=== PATIENT | female | born 1955 | race Caucasian/White ===

== ENCOUNTER 2024-12-30 10:40 | Outpatient (AMB) | payer MEDICARE, SELFPAY ==
--- NOTE | 2024-12-30 10:50 | MHC.OFFVIS ---
Vital Signs 12/30/24 10:54 Height 5 ft 11.38 in Weight 205 lb 0.478 oz BMI 28.3 BP 98/72 Blood Pressure Location Lt brachial Position Sitting Pulse 81 Pulse Source Pulse Oximeter Pulse Oximetry (%) 97 Oxygen Delivery Method Room Air Intake Visit Reasons: muscle pain Intake Note: Patient presents today for muscle pain. Joint pain that comes and goes as well pt believes it may be poss. fibromyalgia. Accompanied by: Self / Same As Patient Allergies environmental allergies Allergy (Verified 12/30/24 11:02) Sneezing HPI HPI muscle pain: Details: New patient evaluation. She developed joint pain and myalgias after the flu age 30s. Prior to the flu she did not have any joint pain. She lived in active life and played basketball for leisure. She then developed cyclical joint pain and myalgias mainly affecting her hands and thighs. An episode may last a few weeks. In the beginning of her clinical course she saw a rheumatology and was diagnosied with undifferentiated connective tissue disease. She reports that lab testing was negative. He told her to take an NSAID, which she took for a while but then discontinued due to fear of side effects with long-term NSAID use. Her knees would be swollen in the beginning. She had pain in her hands. She had some stiffness in her 30s. At this time she does not have stiffness. Sometimes she has discomfort in her hands and her knees. Left knee does not bend as it used to. Hx celiac disease. SHe has a cookie with gluten, which exacerbated bilateral knee pain with swelling lasting 3 weeks 3 months ago. She took advil 200mg-400mg PRN joint pain. Left knee will be painful intermittently. No joints are swollen at this time. Denies dyspnea. Denies dysphagia. Denies rash. She was on rosuvastatin for 2 months a year and half ago. Overall mylagias (mild) occurred on statin. She felt better off of statin. In the last 5 years she has had difficulty getting up from seated position or off the floor to standing. Feels like an old person . She continues to do PT exercises at home. She does not have difficulty getting up out of bed. Main weakness is in her lower extremity. She does not have weakness in her upper extremity. Last episode was a month and a half ago. She experienced muscle pain in her thighs waking her up at night. Lasting a few weeks. In the last 3 years her myalgias are isolated to thighs. 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 She has been experiencing symptoms for 11-12 years with facial and neck tics and active hand movements. Her right shoulder would move from time to time mainly in the evening when she is tired. Genetic testing was negative. They do not have a name for her movement disorder. Her father and grandmother experienced the same symptoms. Her father 21 years ago. Pmx: chorea type movement disorder dx 06/2024 but she had movements 10-12 years before. Celiac disease and bipolar disease. Breast biospy due to cystic breasts and tonsils removed in childhood. 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 Medication list reviewed. She takes vitamin D supplement and PRN multivitamin No recreational drug use or alcohol use. Grandmother had arthritis. [facility] Medical History (Updated 12/30/24 @ 22:39 by Harpreet Govea MD) Sleep apnea Celiac disease Bipolar 1 disorder Movement disorder Surgical History (Updated 12/30/24 @ 11:01 by Jovita Mata CMA) H/O breast biopsy History of tonsillectomy Review of Systems Const All systems reviewed & are unremarkable except as noted in HPI and below Physical Exam Vital Signs: Last Vital Signs Pulse 81 12/30/24 10:54 BP 98/72 12/30/24 10:54 Pulse Ox 97 12/30/24 10:54 Oxygen Delivery Method Room Air 12/30/24 10:54 BMI result Body Mass Index 28.3 Const Other: General: Comfortable CVS: RRR Respiratory: clear to auscultation bilaterally. Good respiratory effort Skin: No lesions seen MSK: Tender to palpate right 3rd PIP with mild synovitis present. Tender left 4th PIP. Heberden nodes and Damon's nodes present. She is able to make a fist with her hands. Normal range of motion of upper extremities. Bilateral hip rotation is 45 degrees. Knee flexion is normal. 5/5 power upper extremity. 4/5 power hip flexors bilateral. Rest of lower extremity is 5/5 power. Assessment & Plan Assessment & Plan (1) Leg weakness: Comment: Chronic history of myalgias involving her thighs and arthralgias mainly affecting her hands. She has clinical osteoarthritis of hands that may explain her intermittent hand pain. On exam she has lower extremity proximal muscle weakness. Differential diagnosis includes osteoarthritis of hips contributing to lower extremity weakness versus primary myopathy such as idiopathic inflammatory myositis, and metabolic myopathy. She was recently diagnosed with Chorea type movement disorder, which describes the characteristic of her movement but she does not have an established movement disease diagnosis based on her testing with neurology. Unfortunately, she does not have an established treatment or prognosis for her condition. There may be a possibility that her cyclic myalgias and arthralgias may be related to her movement disorder. It is interesting to note that she had worsening myalgias when she was on rosuvastatin last year for 2 months but she has discontinued it a year and a half ago with improvement (statin induced myalgias vs necrotizing autoimmune myositis). Code(s): R29.898 - Other symptoms and signs involving the musculoskeletal system Category: Medical Qualifiers: Laterality: bilateral Qualified Code(s): R29.898 - Other symptoms and signs involving the musculoskeletal system Plan: X-ray bilateral hips Labs ordered including muscle enzymes, electrolytes, TSH, hemoglobin A1c, vitamin B12 and inflammatory markers. EMG bilateral lower extremities ordered After x-ray results and lab results are reviewed, I will consider PT to improve lower extremity strength. She would like to go to PT closer to her home. Return to clinic in 1-2 months (2) Myalgia: Code(s): M79.10 - Myalgia, unspecified site Category: Medical Plan: See above (3) Bilateral hand pain: Comment: Intermittent. She has clinical osteoarthritis. Discussed diagnosis and management. Code(s): M79.641 - Pain in right hand; M79.642 - Pain in left hand Category: Medical Plan: X-ray bilateral hands ordered She can try topical diclofenac gel 1% applied to affected area every 4-6 hours as needed Orders: Orders Alanine Aminotransferase Today M79.10 - Myalgia, unspecified site Erythrocyte Sedimentation Rate Today M79.10 - Myalgia, unspecified site Aspartate Amino Transferase Today M79.10 - Myalgia, unspecified site C Reactive Protein Today M79.10 - Myalgia, unspecified site Creatinine Today M79.10 - Myalgia, unspecified site Creatine Kinase Total Today M79.10 - Myalgia, unspecified site UA w Microscopic Today M79.10 - Myalgia, unspecified site XR hand LT min 3V Today M79.641 - Pain in right hand, M79.642 - Pain in left hand XR hand RT min 3V Today M79.641 - Pain in right hand, M79.642 - Pain in left hand Hemoglobin A1c Today M79.10 - Myalgia, unspecified site Albumin Level Today M79.10 - Myalgia, unspecified site Calcium Today M79.10 - Myalgia, unspecified site Potassium Today M79.10 - Myalgia, unspecified site Sodium Today M79.10 - Myalgia, unspecified site Vitamin B12 Today M79.10 - Myalgia, unspecified site Aldolase Today M79.10 - Myalgia, unspecified site Complete Blood Count Auto Diff Today M79.10 - Myalgia, unspecified site XR hips NADJA min 3V Today R29.898 - Other symptoms and signs involving the musculoskeletal system NE electromyogram (EMG) Today M79.10 - Myalgia, unspecified site, R29.898 - Other symptoms and signs involving the musculoskeletal system NE nerve conduction velocity Today M79.10 - Myalgia, unspecified site, R29.898 - Other symptoms and signs involving the musculoskeletal system TSH reflex Free T4 Today M79.10 - Myalgia, unspecified site Magnesium Today M79.10 - Myalgia, unspecified site Coding Level of Care Code New Pt Level 4 (08545) Diagnoses Weakness of both lower extremities R29.898 Laterality: bilateral Myalgia M79.10 Bilateral hand pain M79.641; M79.642
[2024-12-30 10:54] VITALS: BP 98/72; PULSE 81; O2SAT 97; BMI 28.3
--- OUTSIDE RECORDS SUMMARY | 2024-12-30 12:27 | XMS_ITS | Referral Summary ---
Author Organization [facility] Address [address] [place] [address] Care Team Providers Care Chronometer Tester Name Role Phone Mello Hamlin MD Primary Care Provider [phone] Encounters Date Type Department Care Team Description 10/26/2024 Results Follow-Up [facility] [address] [place] [phone] Substation Electrician Supervisor: Elyssa James MD 10/26/2024 myChart Message [facility] [address] [place] [address] [phone] Substation Electrician Supervisor: Jadyn Lutz, MS NKX2-1 genetics negative 10/26/2024 Orders Only [facility] [address] [place] [phone] Substation Electrician Supervisor: Jadyn Lutz, 10/11/2024 1:00 PM EST Evaluation [facility] [address] [place] [phone] Substation Electrician Supervisor: Saúl Yoder MD Del Vecchio, Maria, MS Hi from Last 3 Months Allergies Active Allergy Reactions Criticality Noted Date Comments Diflunisal Swelling High 11/13/2018 Oral swelling Medications citalopram (CeleXA) 20 mg tablet Take 20 mg by mouth once a day. Active divalproex DR (Depakote) 250 mg EC tablet Take 250 mg by mouth every night. 04/02/2022 Active Social History Tobacco Use Types Packs/Day Years Used Date Smoking Tobacco: Never Smokeless Tobacco: Never Tobacco Cessation:Counseling Given: Not Answered Alcohol Use Standard Drinks/Week Comments Never 0 (1 standard drink = 0.6 oz pur e alcohol) Comments Unknown Sex and Gender Information Value Date Recorded Sex Assigned at Female 12/11/2023 3:45 PM EDT Legal Sex Female 11:55 AM EDT Gender Identity Female 06/03/2024 9:49 AM EDT Sexual Orientation Choose not to disclose 2023 9:49 AM EDT Plan of Treatment Upcoming Encounters Date Type Department Care Team (Late st Contact Info) Description 06/23/2025 9:00 AM EDT Office Visit [facility] [address] [place] [phone] Saúl Navarro MD [address] [place] [address] Procedures * Due to [place] [employer] law, this organization might not be sharing negative HIV tests. Procedure Name Priority Date/Time Associated Diagnosis Comments GENETIC TEST, OUTSIDE LAB Routine 10/26/2024 10:49 AM EST from Last 3 Months Results * Due to [facility] law, this organization might not be sharing negative HIV tests. * Genetic Test, Outside Lab (10/26/2024 10:49 AM EST) Jadyn Kiser MS LAB BLOOD ORDERABLES Final Result from Last 3 Months Insurance [facility] SUPP MEDICARE Care Teams Chronometer Tester Relationship Specialty Start Date End Date Mello Hamlin MD PCP - General 12/11/23
--- OUTSIDE RECORDS SUMMARY | 2024-12-30 12:27 | XMS_ITS | Clinical Summary ---
Author Organization [facility] Address [address] [place] [address] Care Team Providers Care Nurse Tech Name Role Phone Mello Hamlin MD Primary Care Provider [phone] Allergies Active Allergy Reactions Criticality Noted Date Comments Diflunisal Swelling High 11/13/2018 Oral swelling Medications citalopram (CeleXA) 20 mg tablet Take 20 mg by mouth once a day. Active divalproex DR (Depakote) 250 mg EC tablet Take 250 mg by mouth every night. 04/02/2022 Active Encounters Date Type Department Care Team Description 10/26/2024 Results Follow-Up [facility] [address] [place] [address] Third Steel Pourer: Elyssa James MD 10/26/2024 myChart Message [facility] [address] [place] [address]199 Third Steel Pourer: Jadyn Lutz, MS NKX2-1 genetics negative 10/26/2024 Orders Only [facility] [address] [place] [address]004 Third Steel Pourer: Jadyn Lutz MS 10/11/2024 1:00 PM EST Evaluation [facility] [address] [place] [address]32 Third Steel Pourer: Saúl Yoder MD Del Vecchio, Maria, MS Chorea from Last 3 Months Family History Medical History Relation Name Comments Chorea Father negative HD roderick ting Dementia Maternal Grandmother later o nset Dementia Mother later onset Chorea Paternal Grandmother Bipolar disorder Sister 1 Relation Name Status Comments Brother Alive Father Maternal Grandfather Maternal Grandmother Mother Paternal Grandfather Paternal Grandmother Sister 1 Alive Sister 2 Alive Social History Tobacco Use Types Packs/Day Years [...] Description 06/23/2025 9:00 AM EDT Office Visit [facility] [address] [place] [phone] Saúl Navarro MD [address] [place] [phone] Health Maintenance Due Date Last Done Comments Cologuard 1955 Colon Cancer Screening 1955 Colonoscopy 1955 FOBT / Fit Test 1955 Sigmoidoscopy 1955 Medicare AWV 1956 Pneumococcal Vaccine: 50+ Years (1 of 1 - PCV) 2005 Alcohol/Substance Use Screening 09/08/2024 Depression Screening and Follow-Up 09/08/2024 Health Care Proxy Review 09/08/2024 Social Drivers of Health Annual Screening 09/08/2024 COVID-19 Vaccine ( season) 2024 05/22/2024, 06/05/2023, 05/28/2022, Additional history exists Mammogram 03/05/2026 03/05/2024, 02/07, 10/17/2022, Additional history exists RSV Vaccine (60+ years old and patients) (1 - 1-dose 75+ series) 2030 DTaP,Tdap,and Td Vaccines (2 - Td or Tdap) 01/03/2033 01/03/2023 Hepatitis C Screening Completed 09/05/2017 Osteoporosis Screening Completed 07/09/2023 Zoster Vaccines Completed 07/11/2023, 03/14/2023 Influenza Vaccine Completed 05/22/2024, , 06/22/2022, Additional history exists Hepatitis B Vaccines Aged Out No long er eligible based on patient's age to complete this topic Procedures * Due to [place] [employer] law, this organization might not be sharing negative HIV tests. Procedure Name Priority Date/Time Associated Diagnosis Comments GENETIC TEST, OUTSIDE LAB Routine 10/26/2024 10:49 AM EST from Last 3 Months Results * Due to [place] [employer] law, this organization might not be sharing negative HIV tests. * Genetic Test, Outside Lab (10/26/2024 10:49 AM EST) Jadyn Kiser MS LAB BLOOD ORDERABLES Final Result from Last 3 Months Insurance [facility] MEDICARE Care Teams Nurse Tech Relationship Specialty Start Date End Date Mello Hamlin MD PCP - General 12/11/23
--- OUTSIDE RECORDS SUMMARY | 2024-12-30 12:27 | XMS_ITS | Encounter Summary ---
Author Organization [facility] Address [address] [place] [address] Care Team Providers Care Food Service Representative Name Role Phone Mello Hamlin MD Primary Care Provider [phone] Encounter Details Date Type Department Care Team (Late st Contact Info) Description 10/26/2024 Results Follow-Up [facility] [address] [place] [phone] Emergency Medcl Emt: Elyssa James MD [address] [place] [phone] Social History Tobacco Use Types Packs/Day Years Used Date Smoking Tobacco: Never Smokeless Tobacco: Never Alcohol Use Standard Drinks/Week Comments Never 0 (1 standard drink = 0.6 oz pur e alcohol) Comments Unknown Sex and Gender Information Value Date Recorded Sex Assigned at Female 12/11/2023 3:45 PM EDT Legal Sex Female 11:55 AM EDT Gender Identity Female 06/03/2024 9:49 AM EDT Sexual Orientation Choose not to disclose 2023 9:49 AM EDT documented as of this encounter Plan of Treatment Upcoming Encounters Date Type Department Care Team (Late st Contact Info) Description 06/23/2025 9:00 AM EDT Office Visit [facility] [address] [place] [phone] Saúl Navarro MD [address] [place] [phone] documented as of this encounter Visit Diagnoses Not on filedocumented in this encounter Care Teams Food Service Representative Relationship Specialty Start Date End Date Mello Hamlin MD PCP - General 12/11/23 documented as of this encounter
== END 2024-12-30 11:58 | disposition home or self-care (01) ==
LOC: HO.RHES 10:41
PROVIDERS: Visit Provider Internal Medicine Rheumatology
DX: R29.898 Other symptoms and signs involving the musculoskeletal system (principal); M79.10 Myalgia, unspecified site; M79.641 Pain in right hand; M79.642 Pain in left hand
CPT/HCPCS: 99204

== ENCOUNTER 2024-12-30 10:40 | Outpatient (REF) | payer MEDICARE, SELFPAY ==
--- OUTSIDE RECORDS SUMMARY | 2024-12-30 14:26 | XMS_ITS | Referral Summary ---
Author Organization [facility] Address [address] [place] [address] Care Team Providers Care Seniour Insight Manager Name Role Phone Mello Hamlin MD Primary Care Provider [phone] Encounters Date Type Department Care Team Description 10/26/2024 Results Follow-Up [facility] [address] [place] [phone] Working Supervisor: Elyssa James MD 10/26/2024 myChart Message [facility] [address] [place] [address] Working Supervisor: Jadyn Lutz, MS NKX2-1 genetics negative 10/26/2024 Orders Only [facility] [address] [place] [address] [phone] Working Supervisor: Jadyn Lutz, 10/11/2024 1:00 PM EST Evaluation [facility] [address] [place] [phone] Working Supervisor: Saúl Yoder MD Del Vecchio, Maria, [...] Description 06/23/2025 9:00 AM EDT Office Visit [facility] [address] [place] [phone] Saúl Navarro MD [address] [place] [phone] Procedures * Due to [place] [employer] law, this organization might not be sharing negative HIV tests. Procedure Name Priority Date/Time Associated Diagnosis Comments GENETIC TEST, OUTSIDE LAB Routine 10/26/2024 10:49 AM EST from Last 3 Months Results * Due to [facility] law, this organization might not be sharing negative HIV tests. * Genetic Test, Outside Lab (10/26/2024 10:49 AM EST) Jadyn Kiser MS LAB BLOOD ORDERABLES Final Result from Last 3 Months Insurance [facility] SUPP MEDICARE Care Teams Seniour Insight Manager Relationship Specialty Start Date End Date Mello Hamlin MD PCP - General 12/11/23
--- OUTSIDE RECORDS SUMMARY | 2024-12-30 14:26 | XMS_ITS | Data Portability ---
Author Organization [facility] Sidecar.me s [facility], [facility] Address [address] [address] Care Team Providers Care Database Design Analyst Name Role Phone HERB NAVARRO OTHER SHADE SHELLEY OTHER Assessment Encounter Date Assessment Date Assessment LastModified by Organization Details LastModified Time 08/16/2024 08/16/2024 Assessment and plan: Blood work done at [facility] Mind: Cognition: Normal aging changes Labs: will work to get labs from [facility] Head imaging: none in our chart Assessment: Had testing with Dr Aviles - found to be average . Plan: Will request records from Dr Aviles. Medications: only takes two medications and doesnt use pill organizer. I personally spent 160 minutes preparing for, caring for the patient (F2F and non-F2F), and finalizing the visit for this patient, which included discussion with patient and/or family about diagnosis, prognosis, recommendation s, risk/benefits, risk reduction and education of above. Will f/u in 3-4 weeks for CPE. Not available 08/16/2024 22:00:31 09/15/2024 09/15/2024 Assessment and plan: Blood work done at [facility] Mind: Cognition: Normal aging changes Labs: will work to get labs from [facility] Head imaging: none in our chart Assessment: Had testing with Dr Aviles - found to be average . Plan: Will request records from Dr Aviles. Medications: only takes two medications and doesnt use pill organizer. I personally spent 70 minutes preparing for, caring for the patient (F2F and non-F2F), and finalizing the visit for this patient, which included discussion with patient and/or family about diagnosis, prognosis, recommendation s, risk/benefits, risk reduction and education of above. Will f/u in 3 months Not available 09/15/2024 14:25:05 Plan of Treatment Reminders Order Date Submit Date Provider Last Modified By Organization Details Last Modified Time Details Appointments FOLLOW UP 30 2024 01:30P M Julia [facility] MD Not available Not available Not available Lab None recorded. Referral sleep medicine referral - getting evaluated for sleep apnea with in-clinic but needs a sleep specialis t 2023 024 ELISSA Christie MD, [address] [place], [address], 09/30/2024 16:03:44 rheumatol ogist referral - 69y.o with celiac, now muscle aches, has seen Dr Arellano , - also with chorea of unknown etiology 2023 024 Harpreet Govea MD, [address] [place], [address], 10/04/2024 13:50:35 Procedures None recorded. Surgeries None recorded. Imaging None recorded. Medication Orders None recorded. Patient Targets Encounter Date Encounter Id Patient Goals Patient Target Last Modified By Organization Details Last Modified Time Top three areas most motivated to change to improve overall currently level of health:1. exercise2. nutrition3. weight mgmt Not available 08/16/2024 22:04:38 Top three areas most motivated to change to improve overall currently level of health:1. exercise2. nutrition3. weight mgmt Not available 09/15/2024 14:30:16 Patient Instructions Encounter Date Encounter Id Patient Instructions Last Modified By Organization Details Last Modified Time 08/16/2024 [id number] sleep apnea: car e instructions Not available 08/16/2024 15:23:51 gluten-free diet : care instructions Not available 08/16/2024 15:23:51 Reason for Referral [facility] Author Referral for Celiac disease 69y.o with celiac, now muscle aches, has seen Dr Arellano, - also with chorea of unknown etiology 69y.o with celiac, now muscle aches, has seen Dr Arellano, - also with chorea of unknown etiology Referring Physician: [facility], Encounter Date: 08/16/2024 Sleep Medicine Referral for Sleep apnea evaluate and treat for sleep apnea getting evaluated for sleep apnea with in-clinic but needs a sleep specialist Referring Physician: [facility], Encounter Date: 08/16/2024 Results Created Date Observation Date Name Description Value Unit Range Abnormal Flag Note LastModifiedBy Organization Detail LastModifiedTime 09/15/19 25 MRI, brain , w/o contr ast No observ ation record ed. [email or web address] Not Available 2024 13:03:32 Result Notes None recorded. Problems Name Problem SNOMED Code Status Onset Date Resolution Date Notes Provider Name and Address Organization Details Recorded Time Celiac disease 604230079 Active 2023 Julia [facility]aker MD [address], [place], [address], [employer] [place] [employer] [facility] [employer] 4 14:15:50 Hyperchole sterolemia 76448762 Active 2023 Julia [facility] MD [address], [place], [address], [employer] [place] - [facility] [employer] 4 14:21:20 Bipolar disorder 00259057 Active 2023 mild and well managed Julia [facility] MD [address], [place], [address], [employer] [place] [employer] [facility] [employer] 4 14:21:32 Sleep apnea 97469085 Active 2023 Julia [facility] MD [address], [place], [address], [place] - [facility] [employer] 4 14:21:44 Joint pain 04944529 Active 2023 Julia [facility]aker MD [address], [place], [address], [place] - [facility] [employer] 4 14:21:58 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 Julia [facility]aker MD [address], [place], [address], [employer] 4 14:47:03 Irregular heart beat 799565656 Active 2023 Julia [facility] MD [address] [facility], [place], [address], [employer] 4 21:31:22 Goal achievemen t finding 714022757 Active 2023 Julia [facility] MD [address] [facility], [place], [address], [employer] 4 22:05:55 Seen by primary care physician [id number] 9 Active 2023 Julia [facility] MD [address] [facility], [place], [address], [employer] 4 22:06:14 Active or passive immunizati on Active 2023 Julia [facility] MD [address] [facility], [place], [address], [employer] 4 22:06:17 Problem Notes None recorded. Procedures Surgical History Date Name Laterality Status Provider Name and Address Organization Details Recorded Time biopsy of breast completed Julia [facility]aker MD [address] [facility],[address], [address], [employer] 08/16/2024 21:55:15 Imaging Results Imaging Date Name Status LastModified by Organiz ation Details LastModified Time 09/15/2024 MRI, brain, w/o contrast completed [email or web address] Information not available 09/15/2024 13:03:32 Procedure Notes None recorded. Medical Equipment None Reported. Allergies Allergen ID Allergen Name Allergen Category Reaction Reaction Severity Criticality Documentation Date Start Date Code Code System Note Provider Name and Address Organization Details Recorded Time 652 Dolobid medicatio n Not available Not available Not available 08/16/2024 86657 6 RxNorm possi ble aller gic react ion Julia [facility] MD [address] [facility], [place], [address], [employer] [facility] 4 21:57:37 Medications Name Sig Start Date Stop Date Status Note LastModified by Organization Details LastModified Time citalopram 20 mg tablet TAKE 1 TABLET BY MOUTH EVERYDAY AT BEDTIME active Not Available Not Available No t Available divalproex ER 250 mg tablet,exte nded release 24 hr TAKE 1 TABLET BY MOUTH EVERYDAY AT BEDTIME active Not Available Not Available No t Available rosuvastati n 10 mg tablet TAKE 1 TABLET BY MOUTH EVERY DAY FOR 90 DAYS 08/16 completed Not Available Not Available Not Available Vitamin D3 active Not Available Not Av ailable Not Available Paxlovid 300 mg (150 mg x 2)-100 mg tablets in a dose pack active Not Available Not Available Not Available Vitals Date Recorded Body height Body mass index (BMI) Body weight Heart rate Oxygen saturation Oxygen saturation in Arterial blood by Pulse oximetry Systolic blood pressure Diastolic blood pressure Provider Name and Address Organization Details Last Updated DateTime 4 181.61 cm 27.9 kg/m2 38866.2 5 g 97 /min 78 % 78 % 118 mm[Hg] 68 mm[Hg] Elizabeth Rosado [facility] 4 14:14:29 Date Recorded Body height Body mass index (BMI) Body weight Heart rate Oxygen saturation Oxygen saturation in Arterial blood by Pulse oximetry Provider Name and Address Organization Details Last Updated DateTime 5 181.61 cm 28.1 kg/m2 80647.8 4 g 105 /min 95 % 95 % Luis Barrientos [facility] 5 12:59:17 Social History None recorded. Functional Status None recorded. Mental Status None recorded. Family History Relationship Description Onset Age of this Age Resolved Age Notes LastModified by Organization Details LastModified Time Sister Bipolar disorder Not available 2023 14:28:32 Sister Malignant tumor of breast Not available 2023 14:28:51 Notes:Both parents mother 3 years ago of dementia, kidney, heart disease; father in 2003 heart disease Medical History Condition Response Abnormal Bleeding N Thyroid Disease N Parkinson's Disease N Emphysema N Incontinence N Edema N Urinary Problems N Abdominal Pain N Heart Attack (NV) N Deep Vein Thrombosis N Hearing Loss N Acid Reflux (GERD) Y Abnormal Pap Smear N Back Problems N Dementia N Nervous System Disorder N Gynecological HistoryNo gynecological history recorded. Obstetrics History GPAL:G 0 P 0 0 0 0 Past Encounters Encounter ID Performer Location Encounter Start Date Encounter Closed Date Diagnosis/Indication Diagnosis SNOMED-CT Code Diagnosis ICD10 Code Diagnosis Note [id number] MD [facility] [address] [facility] [address] 08/16/2024 13:59:05 08/16/2024 22:13:13 Seen by primary care physician [id number] 109 Z76.89 CPE: Cardiovasc ular health:BMI : 27.9Lipids : will get reocrdsDia evans: will get recordsBP control: well controlled Hearing: not needed at this time[facility]: Yes, Aga Cancer Screening: Breast: Mammogram 7.11.01, CDHCervica l: a few years ago, by Dr Feliz : a few years before covid, gets them done every 10 years, the pratice sends a notificati onLung: not needed Diet & Exercise: will discuss Osteoporos is Screening: will check on Dexa Advanced Care Planning: Has HCP Active or passive immunization [id number] Z23 MIIS ID: [id number] : Pneumo PCV - she is aware SummaryImm unizations Tdap 01/03/2023 Flu 06/05/2023 05/22/2024 COVID-19 09/30/2020 10/21/2020 06/11/2021 12/21/2021 05/28/2022 06/05/2023 05/22/2024 HiZoster 03/14/2023 , 07/11/2023 RSV - not until age 75 Advance care planning 71 [id number] Z71.89 Health Care Proxy: Juan Manuel Varghese, had it completed this summer.MOL ST: Not needed at this time.Other : POA and will completed done with Lawyer Chito in [place]. Has Goal achie vement finding [id number] Z72.89 Lifestyle Assessment Short Form:1. Overall level of health (0 - very poor - 10 excellent) 5 Sleep:2. Avg hours sleep: 7-8, totally interrupte d sleep3. How often felt tired: I nap 1-2x a day, more than half the days. Weight Management :What do you think about your current weight?: I am a weight watcher failure!! Nutrition: 5. how often have you eaten fast food/sugar y drinks or packaged foods:? nearly every day. I crave sweets badly!6. Daily servings of fruits&veg etables: depends on the day - 0-3 servings/d ay Exercise:7 . Frequency less than 1x a week. i walk slowly as my dog is with me.8. Minutes of moderate-s trenous exercise per session: < 10 minutes day. I do simple balance and stretching every morning. Purpose and connection /Mental health: (0 - best to 3- worst)9.a. purpose: 0b. support: 0c. little pleasure: 0d. feeling down, depressed, hopeless: 0e. feeling nervous/an xious: 1f. worryin Smoking/Felipe bstance Use10. Nicotine: noFrequncy : Is there concern?: (1 low concern-5 high concern)11 . Alcohol: noFrequenc y: Is there concern?: (1 low concern-5 high concern)12 . Recreation al drugs: noFrequncy : Is there concern?: (1 low concern-5 high concern)13 . Cannabis: noFrequncy : Is there concern?: (1 low concern-5 high concern) Motivation :14. Top three areas most motivated to change to improve overall currently level of health:1. exercise2. nutrition3 . weight mgmt What motivates you to be healthier: my dogs and their competitiv e sports, but lately I have not had much motivation . Sometimes its hard to exercise because everything hurts! Bipolar disorder 6953594 4 F31.9 Mild overall,Vera s never been hospitaliz ed. Had one manic episode that was worse but overall maintained .Had a few episodes when she would get upset but when she went on a mood stabilizer and it made a huge difference . She was mood stabilizer and an anti-depre ssant and felt normal on this.Had been on Prozac, risperidon e 0.5 mg. Prozac made her gain weight - she would keep eating even when she wasn't hungry.Now sees Mau Shelley, Psychwho diagnosed Bipolar. Has seen therapist in the past but doesnt feel a need. Dale that after menopause things are a little better. Doesnt miss the risperidon e.Plan:Cur rently on citalopram 20 mg and divalproex ER 250 mg - does have some loose stoolsCan discuss what she has tried for loose stools next visit.F/u with Psych every 6 months but she can call him if she needs anything. Celiac disease 951886066 K90.0 She had a blood test with Dr De, and stopped gluten.Rec ently had some gluten and devd significan t joint pain but better when she stays off gluten.She has seen Dr Arellano, Rheumatolo gy - who noted she has some auto-immun eNotes that her muscles hurt in her legs - has been going on for the past few years. More frequently in the past 6 months, can wake her up at night. She tries to stretch and that can help.Would benefit from seeing a rheumatolo gist.Will put in a referral to Dr Harpreet Govea, Rheumatsilvana gist at [place]. 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 He walked with a wide base of support. He did see a neurologis t and they found all kinds of stuff but they didnt find a name for it. Movements looked like [place] 's disease. Her father's side of the family all had someone.He referred her to Nan De, did MRI Brain, looked like it was some kind of movement disorder but not named. She wanted to see someone at the beginning. The last two years have gotten more noticable - neck twitches, right shoulder movements. Then Dr Shelley, Psych, decided to get her off risperidon e to ensure that it was not contributi ng. The movements actually got worse off the risperidon e - Dr Navarro said that was to be expected as they use risperidon e to treat it.She started seeing Diana Street, PT - and then saw Dr. 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 He gave her all these options. e had blood work done - which came back normal. MRI Brain was essential ly normal Had CAFE OPERATOR evaluation with [facility] - no problems awarePlan: They will do genetic counseling and then test her.Appt appt with Dr Navarro next year and genetic counseling is in Oct 2024.Funct ionally there is no change. It can be hard to walk up the stairs but her strength is the same.Can check in with Diana Young as needed.Con tinue with exercises, balance work and ensure strengthen ing exercises. Hypercholesterolemia 136 88315 E78.00 Very borderline . One doctor thought she needed rosuvastat in. She was on it for a while - and didnt feel good on it.will get current blood work. She had [facility] Panel. Joint pain 49245857 M25. 50 as above, seems to be due to celiac disease but will put in referral to rheumatolo gy. Sleep apnea 63933734 G47 .30 She had a study done at [facility]. her in hospital study September 19 at [facility].S he will need a referral to sleep clinic - will put in a referral to Dr Henderson [id number] MD [facility] [address] [facility] [address] [place] [address] 09/15/2024 12:51:20 09/15/2024 14:33:12 Seen by primary care physician [id number] 109 Z76.89 CPE: Specialist s:Dr Herb Navarro: [facility] [place] [facility]ermat[facility] yTrying to get into Dr Govea Cardiovasc [facility] health:BMI : 27.9Lipids : will get recordsDia betes: will get recordsBP control: well controlled Hearing: not needed at this timeDental : [facility] Yes, Dr Yung Cancer Screening: Breast: Mammogram 7.2.24, [facility] - repeat 7.25Cervic al: a few years ago, by Dr Feliz : a few years before covid, gets them done every 10 years, the practice sends a notificati onLung: not needed Diet & Exercise: will discussOst eoporosis Screening: within the past 1.5 years, was averageAdv anced Care Planning:H as HCP Active or passive immunization [id number] Z23 MIIS ID: [id number] : Pneumo PCV - she is aware SummaryImm unizations Tdap 01/03/2023 Flu 06/05/2023 05/22/2024 COVID-19 09/30/2020 10/21/2020 06/11/2021 12/21/2021 05/28/2022 06/05/2023 05/22/2024 HiZoster 03/14/2023 , 07/11/2023 RSV - not until age 75 Advance care planning 71 [id number] Z71.89 Health Care Proxy: Juan Manuel Varghese, had it completed this summer.MOL ST: Not needed at this time.Other : POA and will completed done with Lawyer Chito in [place]. Goal achie vement finding [id number] Z72.89 Lifestyle Assessment Short Form:1. Overall level of health (0 - very poor - 10 excellent) 5has aches and pain, would like to lose weight Sleep:2. Avg hours sleep: 7-8, totally interrupte d sleep3. How often felt tired: I nap 1-2x a day, more than half the days. Weight Management :What do you think about your current weight?: I am a weight watcher failure!! Nutrition: 5. how often have you eaten fast food/sugar y drinks or packaged foods:? nearly every day. I crave sweets badly!6. Daily servings of fruits&veg etables: depends on the day - 0-3 servings/d ay Exercise:7 . Frequency less than 1x a week. i walk slowly as my dog is with me.8. Minutes of moderate-s trenous exercise per session: < 10 minutes day. I do simple balance and stretching every morning. Purpose and connection /Mental health: (0 - best to 3- worst)9.a. purpose: 0b. support: 0c. little pleasure: 0d. feeling down, depressed, hopeless: 0e. feeling nervous/an xious: 1f. worryin Smoking/Felipe bstance Use10. Nicotine: noFrequncy : Is there concern?: (1 low concern-5 high concern)11 . Alcohol: noFrequenc y: Is there concern?: (1 low concern-5 high concern)12 . Recreation al drugs: noFrequncy : Is there concern?: (1 low concern-5 high concern)13 . Cannabis: noFrequncy : Is there concern?: (1 low concern-5 high concern) Motivation :14. Top three areas most motivated to change to improve overall currently level of health:1. exercise2. nutrition3 . weight mgmt What motivates you to be healthier: my dogs and their competitiv e sports, but lately I have not had much motivation . Sometimes its hard to exercise because everything hurts! Bipolar disorder 6529911 4 F31.9 Mild overall,Vera s never been hospitaliz ed. Had one manic episode that was worse but overall maintained .Had a few episodes when she would get upset but when she went on a mood stabilizer and it made a huge difference . She was mood stabilizer and an anti-depre ssant and felt normal on this.Had been on Prozac, risperidon e 0.5 mg. Prozac made her gain weight - she would keep eating even when she wasn't hungry.Now sees Mau Shelley, Psychwho diagnosed Bipolar. Has seen therapist in the past but doesnt feel a need. Dale that after menopause things are a little better. Doesnt miss the risperidon e.Plan:Cur rently on citalopram 20 mg and divalproex ER 250 mg - does have some loose stoolsF/u with Psych every 6 months but she can call him if she needs anything. Celiac disease 377534236 K90.0 She had a blood test with Dr De, and stopped gluten.Rec ently had some gluten and devd significan t joint pain but better when she stays off gluten.She has seen Dr Arellano Rheumatsilvana gy - who noted she has some auto-immun e issues.Not es that her muscles hurt in her legs - has been going on for the past few years. More frequently in the past 6 months, can wake her up at night. She tries to stretch and that can help.Would benefit from seeing a rheumatsilvana wallis.We put in a referral to Dr Harpreet Govea Rheumatsilvana gist at [place]. She agreed to see Terri but then was told no by the receptioni Vianey Do 309337633 G25.5 Her father had similiar movements. He walked with a wide base of support. He did see a neurologis t and they found all kinds of stuff but they didnt find a name for it. Movements looked like [place] 's disease. Her father's side of the family all had someone.He referred her to Nan De, did MRI Brain, looked like it was some kind of movement disorder but not named. She wanted to see someone at the beginning. The last two years have gotten more noticable - neck twitches, right shoulder movements. Then Dr Shelley, Psych, decided to get her off risperidon e to ensure that it was not contributi ng. The movements actually got worse off the risperidon e - Dr Navarro said that was to be expected as they use risperidon e to treat it.She started seeing Diana Street, PT - and then saw Dr. Navarro.Sam saeed if it was benign familial chorea though didnt start in childhood. He gave her all these options. e had blood work done - which came back normal. MRI Brain was essential ly normal Had CAFE OPERATOR evaluation with [facility] on 02.04.24 - no problems that she was aware of. Neuro evaluation :Seen by Dr Herb Navarro first 06.10.24 who noted taht she developed some involuntar y movements, particular ly in her shoulder, many years before starting risperidon e. 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 He noted that the ddx was large. He planed to check TSH, CBC, copper, VIt E, refer to genetics and ordered MRI brain without contrast with planned f/u in one year. MRI Bzrain done at [facility] 06.20.24 - noted mild prominence of the ventricles and subarachno id spaces. Otherwise, unremarkab le non contrast MRI examinatio n of the brain (Reading per radiology, Dr Herbert Crespo) Plan:They will do genetic counseling and then test her.Appt appt with Dr Navarro next year and genetic counseling is in Oct 2024.Funct ionally there is no change. It can be hard to walk up the stairs but her strength is the same.Can check in with Diana Young as needed.Con tinue with exercises, balance work and ensure strengthen ing exercises. Hypercholesterolemia 136 97127 E78.00 Very borderline . One doctor thought she needed rosuvastat in. She was on it for a while - and didnt feel good on it.will get current blood work. She had [facility] Heart Panel. Joint pain 84836334 M25. 50 as above, seems to be due to celiac disease but will put in referral to rheumatolo pravin. Sleep apnea 42560372 G47 .30 She had a study done at [facility]. Her in hospital study September 15 at [facility].S he will need a referral to sleep clinic - we put in a referral to Dr Henderson but she has not heard from them. Loose stool 309538170 R1 9.5 Chronic and intermitte nt.She thinks caused by depakote. Has tried immodium with good effect.She is able to manage it but it can be unpredicta ble.Can try metamucil wafers. 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 Health Concerns Section Related Observation LastModified by Organization Detai ls LastModified Time None Recorded Concern Status LastModified by Organization Details LastModified Time None Recorded Advance Directives Directive None Recorded Payers Encounter Date Sequence Insurance Name Policy Number Policy Dinh Covered Member ID Dinh Member ID Guarantor Name 08/16/2024 1 [place] [employer] [place] Terri Jimenez [id number] 5 Terri Jimenez 08/16/2024 2 [place] [id number] Terri Jimenez [id number] Terri Jimenez 09/15/2024 1 [place] Terri Jimenez [id number] Terri Jimenez 09/15/2024 2 [place] [id number] Terri Jimenez [id number] Terri Jimenez Notes Date Note Type Note Provider Name and Address Organization Details Recorded Time 08/16/2024 text/html [facility] New Patient Information Person to contact for appointments and communication of results and appointments Self! 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 Saw Dr Yakelin cadena. Also saw Diana Young. Had a sleep study, in home, and is waiting for an in clinic Celiac disease with joint pain. Holter monitor is pending. PHQ9: 5 overeatingGAD7: 4 feeling nervous thats my norm , irritable - only to Ramesh at home Health and Wellness Goals: What are your goals for your overall health and well-being?: If there were one thing about your health status we could work to improve, what would it be?: better level of exercise, lose weight, combat my terrible sweet tooth. Problems or concerns you? d like the doctor to know about before your visit?: Care Planning: What matters most to you at this point in your life?: health! Longevity! Trying to stay active! fighting fatigue! enjoying my dogs and their competitive sports. Have you had any recent major life events (e.g., moves, in the family, hospital visits)?: Social History: Where were you born/raised? [place] 2 sisters and 1 brother.Childhood: parents very loving. Father drank from the time she was [age] gave them hell and then got better. He had a stressful job - solid state tester.Both parents - mother 3 years ago of dementia, kidney, heart disease; father in 2003 heart diseaseWhat is your highest level of formal education?: [employer]; Master's DegreePartner status: single - got past her 40's, she feels tht she is asexual.Sexual orientation: straightDo you have children?: 0Which of the following best describes your residence?: [facility] - since 1990.Do you live alone? 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 no Do you use a pill organizer?: NoUses auto refill at [facility] How often do you forget to take your medications?: Rare Do you have any concerns about your medications?: depakote causes random loose stools. Have discussed this with Dr Shelley. It is really annoying. General Information: Daily Assistance:Function:AD L: (bathing, dressing, toileting, transferring, continence, feeding)FullIADL: ( Telephone, shopping, food preparation, housekeeping, laundry, Transportation, Medications, Finances)FullDo you have someone who helps you?: 2 hours week, housekeeperDo you provide care for a family member?: No Falls and Mobility: Any falls in the last year?: noAre you afraid of falling?: noAssistive Device: no Sleep How would you describe your sleep?: fair to poorDo you snore?: dont knowHave you been tested for sleep apnea?: in process, the home study suggests sleep apnea Nutrition How would you describe your appetite: goodHave you experienced weight changes over the last year?: weight gainWould you like assistance with meals?: no Fitness Level Do you feel tired during the day?: yesCan you walk up a flight of stairs?: yesCan you walk around the block?: yesDo you take part in regular activities to improve or support your physical fitness?: not reallyHow do you think your health compares to others your age? okay Julia [facility] MD [address] [place] [address], [place], [address], [facility] - [facility] 08/16/2024 22:10:37 09/15/2024 text/html Since last visit , 08.16.24 Has the sleep study at [facility].Oct 11 has genetic counseling at [facility], virtual Joints are back to normal - wakes up with left knee and hip pain in the morning but otherwise doing okay. Did get covid at the end of August, took Paxlovid - it worked well and things were very mild for her.?Falls/change in gait: NoneED visits/hospitalization s: NoneChanges in function: NoneChanges in medication: None Julia [facility] MD [address] [place] [address],[facility], [place], [address], [facility] 09/15/2024 14:32:47 OBGyn Episode No OBEpisode recorded.
--- OUTSIDE RECORDS SUMMARY | 2024-12-30 14:26 | XMS_ITS | Encounter Summary ---
Author Organization [facility] Address [address] [place] [address] Care Team Providers Care Tunnel Mucker Name Role Phone Mello Hamlin MD Primary Care Provider [phone] Encounter Details Date Type Department Care Team (Late st Contact Info) Description 10/26/2024 Results Follow-Up [facility] [address] [place] [address] Microfilmer: Elyssa James MD [address] [place] [address] Social History Tobacco Use Types Packs/Day Years [...] Description 06/23/2025 9:00 AM EDT Office Visit [facility] [address] [place] [address] Saúl Navarro MD [address] [place] [address] documented as of this encounter Visit Diagnoses Not on filedocumented in this encounter Care Teams Tunnel Mucker Relationship Specialty Start Date End Date Mello Hamlin MD PCP - General 12/11/23 documented as of this encounter
--- OUTSIDE RECORDS SUMMARY | 2024-12-30 14:26 | XMS_ITS | Clinical Summary ---
Author Organization [facility] Address [address] [place] [address] Care Team Providers Care Creative Perfumer Name Role Phone Mello Hamlin MD Primary Care Provider [phone] Allergies Active Allergy Reactions Criticality Noted Date Comments Diflunisal Swelling High 11/13/2018 Oral swelling Medications citalopram (CeleXA) 20 mg tablet Take 20 mg by mouth once a day. Active divalproex DR (Depakote) 250 mg EC tablet Take 250 mg by mouth every night. 04/02/2022 Active Encounters Date Type Department Care Team Description 10/26/2024 Results Follow-Up [facility] [address] [place] [address] Reporting Consultant: Elyssa James MD 10/26/2024 myChart Message [facility] [address] [place] [address] Reporting Consultant: Jadyn Lutz, MS NKX2-1 genetics negative 10/26/2024 Orders Only [facility] [address] [place] [address] Reporting Consultant: Jadyn Lutz MS 10/11/2024 1:00 PM EST Evaluation [facility] [address] [place] [address] Reporting Consultant: Saúl Yoder MD Del Vecchio, Maria, MS [...] Description 06/23/2025 9:00 AM EDT Office Visit [facility] [address] [place] [address] Saúl Navarro MD [address] [place] [address] Health Maintenance Due Date Last Done Comments [...] complete this topic Procedures * Due to [place] [employer] law, this organization might not be sharing negative HIV tests. Procedure Name Priority Date/Time Associated Diagnosis Comments GENETIC TEST, OUTSIDE LAB Routine 10/26/2024 10:49 AM EST from Last 3 Months Results * Due to [place] [employer] law, this organization might not be sharing negative HIV tests. * Genetic Test, Outside Lab (10/26/2024 10:49 AM EST) Jadyn Kiser MS LAB BLOOD ORDERABLES Final Result from Last 3 Months Insurance [facility] MEDICARE Care Teams Creative Perfumer Relationship Specialty Start Date End Date Mello Hamlin MD PCP - General 12/11/23
[2024-12-30 17:39] LABS: MANUAL DIFF FLAG NO
[2024-12-30 17:50] LABS: Basophils Absolute Auto 0.1 X10*3/uL (0.0-0.2); Basophils Percent Auto 0.9 % (0-2); Eosinophils Absolute Auto 0.2 X10*3/uL (0.0-0.4); Hematocrit 44.4 % (37.0-47.0); Hemoglobin 14.2 g/dl (12.0-16.0); Imm Gran Abs Auto 0.02 X10*3/uL (0.00-0.03); Imm Gran Pct Auto 0.3 % (0.0-0.4); Lymphocytes Absolute Auto 1.6 X10*3/uL (1.2-4.9); Lymphocytes Percent Auto 22.3 % (20-40); Mean Corpuscular Hemoglobin 28.1 pg (27.0-33.0); Mean Corpuscular Volume 87.7 fL (80.0-98.0); Mean Platelet Volume 11.1 fL (9.4-12.3); Monocytes Absolute Auto 0.5 X10*3/uL (0.1-1.2); Monocytes Percent Auto 7.5 % (2-11); Neutrophils Absolute Auto 4.6 x10*3/uL (2.0-8.3); Platelet Count 321 X10*3/uL (160-400); Red Blood Count 5.06 X10*6/uL (4.20-5.50); Red Cell Distribution Width 14.1 % (11.0-16.0); White Blood Count 6.9 X10*3/uL (4.8-10.8)
[2024-12-30 17:58] LABS: Appearance Urine Clear; Color Urine Yellow; Glucose Urine UA Negative (Negative); Leukocyte Esterase Urine Negative (Negative); Nitrite Urine Negative (Negative); PH 6.5 (5.0-9.0); Urine Blood Negative (Negative); Urine Ketones Trace mg/dL (Negative); Urine Protein Negative (Neg-Trace)
[2024-12-30 18:05] LABS: Alanine Aminotransferase 20 U/L (0-31); Aspartate Amino Transferase 24 U/L (5-31); C Reactive Protein 0.31 mg/dL (< or = 0.50); Estimated Glomerular Filt Rate > 60
[2024-12-30 18:07] LABS: Bacteria Urine None Seen (None Seen); Hyaline Casts Urine 0-2 /LPF (0-2); RBC Urine 0-2 /HPF (0-2); Squamous Epithelial Cell Urine 0-2 /HPF (0-2); WBC Urine 0-5 /HPF (0-5)
[2024-12-30 18:26] LABS: Erythrocyte Sedimentation Rate 4 MM/HR (0-20)
[2024-12-30 23:00] LABS: Albumin Level 4.4 g/dL (3.5-5.0); Calcium 9.6 mg/dL (8.4-10.2); Magnesium 2.5 mg/dL (1.6-2.6); Potassium 4.3 mmol/L (3.3-5.1); Sodium 140 mmol/L (135-145)
[2024-12-30 23:15] LABS: TSH reflex Free T4 0.74 uIU/mL (0.32-4.0)
[2024-12-31 05:26] LABS: Estimated Average Glucose 105 mg/dL; Hemoglobin A1C 128.4083 umol/L; Hemoglobin A1c % 5.3 % (<6.0); Total Hemoglobin (HGBA1C) 3735.9681 umol/L
[2025-01-04 21:33] LABS: Aldolase 4.3 U/L (<=8.1)
== END 2024-12-30 10:41 | disposition home or self-care (01) ==
LOC: HO.HKASLDS 10:40
PROVIDERS: Visit Provider Internal Medicine Rheumatology
DX: M79.10 Myalgia, unspecified site (principal); Z13.1 Encounter for screening for diabetes mellitus
CPT/HCPCS: 36415; 81001; 82040; 82085; 82310; 82550; 82565; 83036; 83735; 84132; 84295; 84443; 84450; 84460; 85025; 85652; 86140; 99202

== ENCOUNTER 2024-12-30 22:33 | Outpatient (REF) | payer MEDICARE, SELFPAY ==
--- OUTSIDE RECORDS SUMMARY | 2024-12-30 22:35 | XMS_ITS | Referral Summary ---
Author Organization [facility] Address [address] [place] [address] Care Team Providers Care Gericare Aide Teacher Name Role Phone Mello Hamlin MD Primary Care Provider [phone] Encounters Date Type Department Care Team Description 10/26/2024 Results Follow-Up [facility] [address] [place] [address] Fixed Income Analyst: Elyssa James MD 10/26/2024 myChart Message [facility] [address] [place] [phone] Fixed Income Analyst: Jadyn Lutz, MS NKX2-1 genetics negative 10/26/2024 Orders Only [facility] [address] [place] [address] Fixed Income Analyst: Jadyn Lutz, 10/11/2024 1:00 PM EST Evaluation [facility] [address] [place] [address] Fixed Income Analyst: Saúl Yoder MD Del Vecchio, Maria, MS [...] Description 06/23/2025 9:00 AM EDT Office Visit [facility] [address] [place] [address] Saúl Navarro MD [address] [place] [address] Procedures * Due to [place] [employer] law, this organization might not be sharing negative HIV tests. Procedure Name Priority Date/Time Associated Diagnosis Comments GENETIC TEST, OUTSIDE LAB Routine 10/26/2024 10:49 AM EST from Last 3 Months Results * Due to [facility] law, this organization might not be sharing negative HIV tests. * Genetic Test, Outside Lab (10/26/2024 10:49 AM EST) Jadyn Kiser MS LAB BLOOD ORDERABLES Final Result from Last 3 Months Insurance [facility] SUPP MEDICARE Care Teams Gericare Aide Teacher Relationship Specialty Start Date End Date Mello Hamlin MD PCP - General 12/11/23
--- OUTSIDE RECORDS SUMMARY | 2024-12-30 22:35 | XMS_ITS | Encounter Summary ---
Author Organization [facility] Address [address] [place] [address] Care Team Providers Care Saw Tailer Name Role Phone Mello Hamlin MD Primary Care Provider [phone] Encounter Details Date Type Department Care Team (Late st Contact Info) Description 10/26/2024 Results Follow-Up [facility] [address] [place] [address] Boiler Plant Worker: Elyssa James MD [address] [place] [address] Social History Tobacco Use Types Packs/Day Years [...] Description 06/23/2025 9:00 AM EDT Office Visit [facility] [address] [place] [address] Saúl Navarro MD [address] [place] [address] documented as of this encounter Visit Diagnoses Not on filedocumented in this encounter Care Teams Saw Tailer Relationship Specialty Start Date End Date Mello Hamlin MD PCP - General 12/11/23 documented as of this encounter
== END 2024-12-30 22:34 | disposition home or self-care (01) ==
LOC: HO.LAB 22:33
PROVIDERS: Visit Provider Internal Medicine Rheumatology
DX: Z13.89 Encounter for screening for other disorder (principal)

== ENCOUNTER 2025-01-03 15:01 | Outpatient (REF) | payer MEDICARE, SELFPAY ==
--- NOTE | ~2025-01-03 | XR_ITS ---
EXAMINATION: XR BILATERAL HIPS WITH AP PELVIS CLINICAL INFORMATION: R29.898 - Other symptoms and signs involving the musculoskeletal system COMPARISON: None available. TECHNIQUE: AP view of the pelvis and single views of each hip were obtained. FINDINGS: Right hip: No acute cortical disruption or malalignment. No lytic or blastic lesions. Mild asymmetric joint space narrowing. Mild sclerosis at the articular surface of the right acetabulum. Left hip: Sclerosis along the articular surface of the acetabulum and femoral head. Asymmetric joint space narrowing. No acute cortical disruption or gross malalignment. No lytic or blastic lesions. XR/XR hips NADJA min 3V IMPRESSION: Moderate osteoarthrosis, left hip. Mild osteoarthrosis, right hip. Electronically signed by: Mumtaz Willard MD 01/04/2025 07:46 AM EDT
--- NOTE | ~2025-01-03 | XR_ITS ---
EXAMINATION: X-ray hand, bilaterally. CLINICAL INFORMATION: Pain in the right hand TECHNIQUE: PA, oblique and lateral views. COMPARISON: None FINDINGS: Right hand: Sclerosis along the articular surface of the first and second carpal metacarpal joints and the radiocarpal joint. Asymmetric joint space narrowing involving the distal and to a lesser extent middle interphalangeal joints of the digits. No acute cortical disruption or malalignment. No lytic or blastic lesions. Left hand: Sclerosis along the articular surface of the first and second carpometacarpal joints. Sclerosis along the articular surface with decreased joint spacing involving the distal and to a lesser extent middle interphalangeal joints of the digits. No acute cortical disruption or malalignment. No lytic or blastic lesions. XR/XR Hand Bilat min 3v IMPRESSION: Osteoarthrosis, mild to moderate both hands. Electronically signed by: Mumtaz Willard MD 01/04/2025 07:52 AM EDT
--- OUTSIDE RECORDS SUMMARY | 2025-01-03 17:56 | XMS_ITS | Clinical Summary ---
Author Organization [facility] Address [address] [place] [address] Care Team Providers Care Compounding Technician Name Role Phone Mello Hamlin MD Primary Care Provider [phone] Allergies Active Allergy Reactions Criticality Noted Date Comments Diflunisal Swelling High 11/13/2018 Oral swelling Medications citalopram (CeleXA) 20 mg tablet Take 20 mg by mouth once a day. Active divalproex DR (Depakote) 250 mg EC tablet Take 250 mg by mouth every night. 04/02/2022 Active Encounters Date Type Department Care Team Description 10/26/2024 Results Follow-Up [facility] [address] [place] [address] Sales Record Clerk: Elyssa James MD 10/26/2024 myChart Message [facility] [address] [place] [address] Sales Record Clerk: Jadyn Lutz, MS NKX2-1 genetics negative 10/26/2024 Orders Only [facility] [address] [place] [address] Sales Record Clerk: Jadyn Lutz MS 10/11/2024 1:00 PM EST Evaluation [facility] [address] [place] [address] Sales Record Clerk: Saúl Yoder MD Del Vecchio, Maria, MS [...] Description 06/23/2025 9:00 AM EDT Office Visit [facility] [address] [place] [address] Saúl Navarro MD [address] [place] [address] Health Maintenance Due Date Last Done Comments [...] complete this topic Procedures * Due to [place] [employer] law, this organization might not be sharing negative HIV tests. Procedure Name Priority Date/Time Associated Diagnosis Comments GENETIC TEST, OUTSIDE LAB Routine 10/26/2024 10:49 AM EST from Last 3 Months Results * Due to [place] [employer] law, this organization might not be sharing negative HIV tests. * Genetic Test, Outside Lab (10/26/2024 10:49 AM EST) Jadyn Kiser MS LAB BLOOD ORDERABLES Final Result from Last 3 Months Insurance [facility] MEDICARE Care Teams Compounding Technician Relationship Specialty Start Date End Date Mello Hamlin MD PCP - General 12/11/23
--- OUTSIDE RECORDS SUMMARY | 2025-01-03 17:56 | XMS_ITS | Data Portability ---
Author Organization [facility] [employer] [facility], [facility] Address [address] [address] Care Team Providers Care Wet Finisher Name Role Phone HERB NAVARRO OTHER SHADE SHELLEY OTHER Assessment Encounter Date Assessment Date Assessment LastModified by Organization Details LastModified Time 08/16/2024 08/16/2024 Assessment and plan: Blood work done at [facility] Mind: Cognition: Normal aging changes Labs: will work to get labs from [facility] Head imaging: none in our chart Assessment: [...] Assessment and plan: Blood work done at [facility] Mind: Cognition: Normal aging changes Labs: will work to get labs from [facility] Head imaging: none in our chart Assessment: [...] 2023 024 ELISSA Christie MD, [address] [place], [address], 09/30/2024 16:03:44 rheumatol ogist referral - 69y.o with celiac, now muscle aches, has seen Dr Arellano , - also with chorea of unknown etiology 2023 024 Harpreet Govea MD, [address] [place], [address], 10/04/2024 13:50:35 Procedures None recorded. Surgeries None [...] Not available 08/16/2024 15:23:51 Reason for Referral Client Service And Consulting Manager Referral for Celiac disease 69y.o with celiac, [...] Address Organization Details Recorded Time Celiac disease 037273294 Active 2023 Julia Whitaker MD [address], [place], [address], [place] [employer] [facility] Provas[facility] 4 14:15:50 Hyperchole sterolemia 55030150 Active 2023 Julia Whitaker MD [address], [place], [address], [place] [employer] [facility] Pro[facility] 4 14:21:20 Bipolar disorder 17861226 Active 2023 mild and well managed Julia [facility]aker MD [address], [place], [address], [place] [employer] [facility] Pro[facility] 4 14:21:32 Sleep apnea 31636293 Active 2023 Julia Whitaker MD [address], [place], [address], [place] [employer] [facility] Provascul[facility] 4 14:21:44 Pain of joint 33452716 Active 2023 Julia Whitaker MD [address], [place], [address], [place] [employer] [facility] Provas[facility] 4 14:21:58 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 Julia Whitaker MD [address], [place], [address], Status Overloads Provasculon 4 14:47:03 Irregular heart beat 951672102 Active 2023 Julia Whitaker MD [address] [facility], [place], [address], Status Overloads Provasculon 4 21:31:22 Goal achievemen t finding 215650400 Active 2023 Julia Whitaker MD [address] [facility], [place], [address], Status Overloads Provasculon 4 22:05:55 Seen by primary care physician [id number] 9 Active 2023 Julia [facility] MD [address] [facility], [place], [address], [employer] 4 22:06:14 Active or passive immunizati on Active 2023 Julia [facility]aker MD [address] [facility], [place], [address], [employer] [place] 4 22:06:17 Problem Notes None recorded. Procedures Surgical History Date Name Laterality Status Provider Name and Address Organization Details Recorded Time biopsy of breast completed Julia Whitaker MD [address] [facility],[address], [address], [employer] 08/16/2024 21:55:15 Imaging Results Imaging Date Name [...] Not available Not available Not available 08/16/2024 [id number] RxNorm possi ble aller gic react ion Julia Whitaker MD [address] [facility], [place], [address], [employer] 4 21:57:37 Medications Name Sig Start Date [...] Updated DateTime 4 181.61 cm 27.9 kg/m2 32600.2 5 g 97 /min 78 % 78 % 118 mm[Hg] 68 mm[Hg] Elizabeth Rosado [employer] 4 14:14:29 Date Recorded Body height Body mass index (BMI) Body weight Heart rate Oxygen saturation Oxygen saturation in Arterial blood by Pulse oximetry Provider Name and Address Organization Details Last Updated DateTime 5 181.61 cm 28.1 kg/m2 00265.8 4 g 105 /min 95 % 95 % Luis Barrientos [employer] 5 12:59:17 Social History None recorded. Functional [...] 2003 heart disease Medical History Condition Response Thyroid Disease N Emphysema N Incontinence N Edema N Deep Vein Thrombosis N Hearing Loss N Abnormal Pap Smear N Acid Reflux (GERD) Y Nervous System Disorder N Abnormal Bleeding N Parkinson's Disease N Urinary Problems N Abdominal Pain N Heart Attack (NM) N Back Problems N Dementia N Gynecological HistoryNo gynecological history recorded. Obstetrics History GPAL:G 0 P 0 0 0 0 Past Encounters Encounter ID Performer Location Encounter Start Date Encounter Closed Date Diagnosis/Indication Diagnosis SNOMED-CT Code Diagnosis ICD10 Code Diagnosis Note [id number] MD [facility] [address] [place] [address] 08/16/2024 13:59:05 08/16/2024 22:13:13 Seen by primary care physician [id number] Z76.89 CPE: Cardiovasc ular health:BMI : 27.9Lipids : will get reocrdsDia evans: will get recordsBP control: well controlled Hearing: not needed at this timeDental : [facility] PracticeVi cheryl: Yes, Aga Cancer Screening: Breast: Mammogram 7.11.01, CDHCervica l: a few years ago, by Dr Feliz : a few years before covid, gets them done every 10 years, the pratice sends a notificati onLung: not needed Diet & Exercise: will discuss Osteoporos is Screening: will check on Dexa Advanced Care Planning: Has HCP Active or passive immunization [id number] Z23 MIIS ID: [id number] : Pneumo PCV - she is aware SummaryImm unizations Tdap 01/03/2023 Flu 06/05/2023 05/22/2024 COVID-19 09/30/2020 10/21/2020 06/11/2021 12/21/2021 05/28/2022 06/05/2023 05/22/2024 HiZoster 03/14/2023 , 07/11/2023 RSV - not until age 75 Advance care planning 71 [id number] Z71.89 Health Care Proxy: Juan Manuel Varghese, had it completed this summer.MOL ST: Not needed at this time.Other : POA and will completed done with Lawyer Chito in [place]. Has Goal achie vement finding [id number] Z72.89 Lifestyle Assessment Short Form:1. Overall level [...] to exercise because everything hurts! Bipolar disorder 8178370 4 F31.9 Mild overall,Chuy s never been hospitaliz ed. Had one [...] the past but doesnt feel a need. [place] that after menopause things are a little better. Doesnt miss the risperidon e.Plan:Cur rently on citalopram 20 mg and divalproex ER 250 mg - does have some loose stoolsCan discuss what she has tried for loose stools next visit.F/u with Psych every 6 months but she can call him if she needs anything. Celiac disease 015277582 K90.0 She had a blood test with [...] in a referral to Dr Harpreet Govea, Rheumatolo gist at [place]. 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 He walked with a wide base of support. He did see a neurologis t and they found all kinds of stuff but they didnt find a name for it. Movements looked like Caleb 's disease. Her father's side of the [...] MRI Brain was essential ly normal Had MARINE FIRE FIGHTER evaluation with [facility] - no problems awarePlan: [...] and ensure strengthen ing exercises. Hypercholesterolemia 136 75063 E78.00 Very borderline . One doctor thought she needed rosuvastat in. She was on it for a while - and didnt feel good on it.will get current blood work. She had [facility] Heart Panel. Pain of joint 12153729 M 25.50 as above, seems to be due to celiac disease but will put in referral to rheumatolo gy. Sleep apnea 59331993 G47 .30 She had a study done at [facility]. her in hospital study September 19 at [facility].S he will need a referral to sleep clinic - will put in a referral to Dr Henderson [id number] MD [facility] [address] [facility] [address] [place] [address] 09/15/2024 12:51:20 09/15/2024 14:33:12 Seen by primary care physician [id number] 109 Z76.89 CPE: Specialist s:Dr Herb Navarro: [facility] [place] [facility]at[facility] yTrying to get into Dr Govea [facility] health:BMI : 27.9Lipids : will get recordsDia betes: will get recordsBP control: well controlled Hearing: not needed at this timeDental : [facility]Vi cheryl: Yes, Dr Yung Cancer Screening: Breast: Mammogram 7..24, [facility] - repeat 7.25Cervic al: a few years ago, by Dr Feliz : a few years before covid, gets them done every 10 years, the practice sends a notificati onLung: not needed Diet & Exercise: will discussOst eoporosis Screening: within the past 1.5 years, was averageAdv anced Care Planning:H as HCP Active or passive immunization 578350992 Z23 MIIS ID: [id number] : Pneumo PCV - she is aware SummaryImm unizations Tdap 01/03/2023 Flu 06/05/2023 05/22/2024 COVID-19 09/30/2020 10/21/2020 06/11/2021 12/21/2021 05/28/2022 06/05/2023 05/22/2024 HiZoster 03/14/2023 , 07/11/2023 RSV - not until age 75 Advance care planning 71 [id number] Z71.89 Health Care Proxy: Juan Manuel Varghese, had it completed this summer.MOL ST: Not needed at this time.Other : POA and will completed done with Lawyer Chito in [place]. Goal achie vement finding [id number] Z72.89 Lifestyle Assessment Short Form:1. Overall level [...] to exercise because everything hurts! Bipolar disorder 8627494 4 F31.9 Mild overall,Vera s never been [...] the past but doesnt feel a need. [place] that after menopause things are a little better. Doesnt miss the risperidon e.Plan:Cur rently on citalopram 20 mg and divalproex ER 250 mg - does have some loose stoolsF/u with Psych every 6 months but she can call him if she needs anything. Celiac disease 622808261 K90.0 She had a blood test with Dr De, and stopped gluten.Rec ently had some gluten and devd significan t joint pain but better when she stays off gluten.She has seen Dr Arellano, Rheumatsilvana gy - who noted she has [...] a referral to Dr Harpreet Govea, Rheumatsilvana wallis at [place]. She agreed to see Terri but then was told no by the receptioni Vianey Pinzon 284358331 G25.5 Her father had similiar movements. He walked with a wide base of support. He did see a neurologis t and they found all kinds of stuff but they didnt find a name for it. Movements looked like Daggett 's disease. Her father's side of the [...] MRI Brain was essential ly normal Had MARINE FIRE FIGHTER evaluation with [facility] on 02.04.24 - no [...] in one year. MRI Bzrain done at [facility] 06.20.24 - noted mild prominence of [...] the stairs but her strength is the same. Can check in with Diana Young as needed.Con tinue with exercises, balance work and ensure strengthen ing exercises. Hypercholesterolemia 136 79830 E78.00 Very borderline . One doctor thought she needed rosuvastat in. She was on it for a while - and didnt feel good on it.will get current blood work. She had [facility] Heart Panel. Pain of joint 44989657 M 25.50 as above, seems to be due to celiac disease but will put in referral to rheumatolo pravin. Sleep apnea 46632024 G47 .30 She had a study done at [facility]. Her in hospital study September 15 at [facility].S he will need a referral to sleep clinic - we put in a referral to Dr Henderson but she has not heard from them. Loose stool 894910856 R1 9.5 Chronic and intermitte nt.She thinks caused by depakote. Has tried immodium with good effect.She is able to manage it but it can be unpredicta ble.Can try metamucil wafers. Cervical kyphosis 349500 001 M40.202 reviewed would work to try to reverse this to prevent problems in the future.Rec book [facility] ed exercises that can be done. Health Concerns Section Related Observation LastModified by Organization Detai ls LastModified Time None Recorded Concern Status LastModified by Organization Details LastModified Time None Recorded Advance Directives Directive None Recorded Payers Encounter Date Sequence Insurance Name Policy Number Policy Dinh Covered Member ID Dinh Member ID Guarantor Name 08/16/2024 1 [place] [employer] Terri Jimenez [id number] Terri Jimenez 08/16/2024 2 [place] [id number] Terri Jimenez [id number] Terri Jimenez 09/15/2024 1 [place] [employer] Terri Jimenez [id number] Terri Jimenez 09/15/2024 2 [place] [id number] Terri Jimenez [id number] Terri Jimenez Notes Date Note Type Note Provider Name and Address Organization Details Recorded Time 08/16/2024 text/html [facility] New Patient Information Person to contact for appointments and communication of results and appointments Self! Preferred Pronouns{{He/his/him S he/her/her* They/their /them Other}}: Former PCP:Dr Hamlin, prior - Dr Gonsalez Major life events:Dx of a chorea type movement disorder from Dr Navarro at [facility] in [place] HPI: Chorea. Saw Dr Yakelin cadena. Also [...] better. He had a stressful job - real estate salesperson.Both parents - mother 3 years ago of dementia, kidney, heart disease; father in 2003 heart diseaseWhat is your highest level of formal education?: [employer]; Master's DegreePartner status: single - got past her 40's, she feels tht she is asexual.Sexual orientation: straightDo you have children?: 0Which of the following best describes your residence?: [facility] - since 1990.Do you live alone? 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 no Do you use a pill organizer?: NoUses auto refill at [facility] How often do you forget to [...] others your age? okay Julia Whitaker MD [address] [place] [address],[facility], [place], [address], [facility] - [facility] 08/16/2024 22:10:37 09/15/2024 text/html Since last visit , 08.16.24 Has the sleep study at [facility].Oct 11 has genetic counseling at [facility], virtual Joints are back to normal - wakes up with left knee and hip pain in the morning but otherwise doing okay. Did get covid at the end of August, took Paxlovid - it worked well and things were very mild for her.?Falls/change in gait: NoneED visits/hospitalization s: NoneChanges in function: NoneChanges in medication: None Julia Whitaker MD [address] [place] [address],[facility], [place], [address], [facility] 09/15/2024 14:32:47 OBGyn Episode No OBEpisode recorded.
--- OUTSIDE RECORDS SUMMARY | 2025-01-03 17:56 | XMS_ITS | Referral Summary ---
Author Organization [facility] Address [address] [place] [address] Care Team Providers Care Device Engineer Name Role Phone Mello Hamlin MD Primary Care Provider [phone] Encounters Date Type Department Care Team Description 10/26/2024 Results Follow-Up [facility] [address] [place] [address] Branch Operations Specialist: Elyssa James MD 10/26/2024 myChart Message [facility] [address] [place] [address] Branch Operations Specialist: Jadyn Lutz, MS NKX2-1 genetics negative 10/26/2024 Orders Only [facility] [address] [place] [address] Branch Operations Specialist: Jadyn Lutz, 10/11/2024 1:00 PM EST Evaluation [facility] [address] [place] [address] Branch Operations Specialist: Saúl Yoder MD Del Vecchio, Maria, MS [...] Description 06/23/2025 9:00 AM EDT Office Visit [facility] [address] [place] [address] Saúl Navarro MD [address] [place] [address] Procedures * Due to [place] [address] law, this organization might not be sharing negative HIV tests. Procedure Name Priority Date/Time Associated Diagnosis Comments GENETIC TEST, OUTSIDE LAB Routine 10/26/2024 10:49 AM EST from Last 3 Months Results * Due to [facility] law, this organization might not be sharing negative HIV tests. * Genetic Test, Outside Lab (10/26/2024 10:49 AM EST) Jadyn Kiser MS LAB BLOOD ORDERABLES Final Result from Last 3 Months Insurance [facility] SUPP MEDICARE Care Teams Device Engineer Relationship Specialty Start Date End Date Mello Hamlin MD PCP - General 12/11/23
== END 2025-01-03 15:02 | disposition home or self-care (01) ==
LOC: HO.XRAY 15:01
PROVIDERS: PCP Internal Medicine Geriatric Medicine; Visit Provider Internal Medicine Rheumatology
DX: R29.898 Other symptoms and signs involving the musculoskeletal system (principal); M79.641 Pain in right hand; M79.642 Pain in left hand
CPT/HCPCS: 73130; 73522

== ENCOUNTER → 2025-01-03 15:08 | Outpatient (BNV) | payer MEDICARE, SELFPAY | PROVIDERS: PCP Internal Medicine Geriatric Medicine; Visit Provider Radiology Diagnostic Radiology | DX: M16.0 Bilateral primary osteoarthritis of hip (principal); M79.641 Pain in right hand | CPT/HCPCS: 73130; 73522 ==

== ENCOUNTER 2025-01-04 09:55 | Outpatient (REF) | payer MEDICARE, SELFPAY ==
--- OUTSIDE RECORDS SUMMARY | 2025-01-04 11:14 | XMS_ITS | Clinical Summary ---
Author Organization [facility] Address [address] [place] [address] Care Team Providers Care It Instructor Name Role Phone Mello Hamlin MD Primary Care Provider [phone] Allergies Active Allergy Reactions Criticality Noted Date Comments Diflunisal Swelling High 11/13/2018 Oral swelling Medications citalopram (CeleXA) 20 mg tablet Take 20 mg by mouth once a day. Active divalproex DR (Depakote) 250 mg EC tablet Take 250 mg by mouth every night. 04/02/2022 Active Encounters Date Type Department Care Team Description 10/26/2024 Results Follow-Up [facility] [address] [place] [address] Mold Washer: Elyssa James MD 10/26/2024 myChart Message [facility] [address] [place] [address] Mold Washer: Jadyn Lutz, MS NKX2-1 genetics negative 10/26/2024 Orders Only [facility] [address] [place] [address] Mold Washer: Jadyn Lutz MS 10/11/2024 1:00 PM EST Evaluation [facility] [address] [place] [address] Mold Washer: Saúl Yoder MD Del Vecchio, Maria, MS [...] Description 06/23/2025 9:00 AM EDT Office Visit [facility] [address] [place] [address] Saúl Navarro MD [address] [place] [address] Health Maintenance Due Date Last Done Comments [...] complete this topic Procedures * Due to [place] [employer] law, this organization might not be sharing negative HIV tests. Procedure Name Priority Date/Time Associated Diagnosis Comments GENETIC TEST, OUTSIDE LAB Routine 10/26/2024 10:49 AM EST from Last 3 Months Results * Due to [place] [employer] law, this organization might not be sharing negative HIV tests. * Genetic Test, Outside Lab (10/26/2024 10:49 AM EST) Jadyn Kiser MS LAB BLOOD ORDERABLES Final Result from Last 3 Months Insurance [facility] MEDICARE Care Teams It Instructor Relationship Specialty Start Date End Date Mello Hamlin MD PCP - General 12/11/23
--- OUTSIDE RECORDS SUMMARY | 2025-01-04 11:14 | XMS_ITS | Referral Summary ---
Author Organization [facility] Address [address] [place] [address] Care Team Providers Care Rn Or Lvn Name Role Phone Mello Hamlin MD Primary Care Provider [phone] Encounters Date Type Department Care Team Description 10/26/2024 Results Follow-Up [facility] [address] [place] [address] Scrip Clerk: Elyssa James MD 10/26/2024 myChart Message [facility] [address] [place] [address] Scrip Clerk: Jadyn Lutz, MS NKX2-1 genetics negative 10/26/2024 Orders Only [facility] [address] [place] [address] Scrip Clerk: Jadyn Lutz, 10/11/2024 1:00 PM EST Evaluation [facility] [address] [place] [address] Scrip Clerk: Saúl Yoder MD Del Vecchio, Maria, [...] Description 06/23/2025 9:00 AM EDT Office Visit [facility] [address] [place] [address] Saúl Navarro MD [address] [place] [address] Procedures * Due to [place] law, this organization might not be sharing negative HIV tests. Procedure Name Priority Date/Time Associated Diagnosis Comments GENETIC TEST, OUTSIDE LAB Routine 10/26/2024 10:49 AM EST from Last 3 Months Results * Due to [facility] law, this organization might not be sharing negative HIV tests. * Genetic Test, Outside Lab (10/26/2024 10:49 AM EST) Jadyn Kiser MS LAB BLOOD ORDERABLES Final Result from Last 3 Months Insurance [facility] SUPP MEDICARE Care Teams Rn Or Lvn Relationship Specialty Start Date End Date Mello Hamlin MD PCP - General 12/11/23
[2025-01-04 17:56] LABS: Estimated Average Glucose 105 mg/dL; Hemoglobin A1C 117.2571 umol/L; Hemoglobin A1c % 5.3 % (<6.0); Total Hemoglobin (HGBA1C) 3357.6388 umol/L
[2025-01-04 18:08] LABS: Albumin Level 4.1 g/dL (3.5-5.0); Calcium 9.4 mg/dL (8.4-10.2); Magnesium 2.5 mg/dL (1.6-2.6); Potassium 4.5 mmol/L (3.3-5.1); Sodium 143 mmol/L (135-145)
[2025-01-04 18:28] LABS: Vitamin B12 514 pg/mL (200-900)
== END 2025-01-04 09:56 | disposition home or self-care (01) ==
LOC: HO.HKASLDS 09:55
PROVIDERS: Visit Provider Internal Medicine Rheumatology
DX: M79.10 Myalgia, unspecified site (principal); Z13.1 Encounter for screening for diabetes mellitus
CPT/HCPCS: 36415; 82040; 82310; 82607; 83036; 83735; 84132; 84295; 84443

== ENCOUNTER 2025-03-09 13:01 | Outpatient (AMB) | payer MEDICARE, SELFPAY ==
--- NOTE | 2025-03-09 13:04 | MHC.OFFVIS ---
Vital Signs 03/09/25 13:06 Height 5 ft 11 in Weight 208 lb 15.971 oz BMI 29.1 BP 100/70 Blood Pressure Location Lt brachial Position Sitting Pulse 76 Pulse Source Pulse Oximeter Pulse Oximetry (%) 96 Oxygen Delivery Method Room Air Intake Visit Reasons: 2 month f/u Intake Note: Patient presents today for muscle pain. Allergies environmental allergies Allergy (Verified 03/09/25 13:08) Sneezing HPI HPI 2 month f/u: Details: Since using CPAP she has not had cyclic epsiodes of fatigue and myalgias. She has been using CPAP for at least 3 months. Dropping things from hands. [facility] Medical History Sleep apnea Celiac disease Bipolar 1 disorder Movement disorder Surgical History H/O breast biopsy History of tonsillectomy Physical Exam Vital Signs: Last Vital Signs Pulse 76 03/09/25 13:06 BP 100/70 03/09/25 13:06 Pulse Ox 96 03/09/25 13:06 Oxygen Delivery Method Room Air 03/09/25 13:06 BMI result Body Mass Index 29.1 Const Other: General: Comfortable CVS: RRR Respiratory: clear to auscultation bilaterally. Good respiratory effort Skin: No lesions seen MSK: Nontender joints. [place] nodes and Damon's nodes present. She is able to make a fist with her hands. Good handgrip strength but right is worse than left. Normal range of motion of upper extremities. Bilateral hip rotation is 45 degrees. Knee flexion is normal. 5/5 power upper extremity and lower extremities. Assessment & Plan Assessment & Plan (1) Osteoarthritis of hands, bilateral: Comment: Discussed x-ray results. She experiences subjective had weakness. Code(s): M19.041 - Primary osteoarthritis, right hand; M19.042 - Primary osteoarthritis, left hand Category: Medical Qualifiers: Osteoarthritis type: primary Qualified Code(s): M19.041 - Primary osteoarthritis, right hand; M19.042 - Primary osteoarthritis, left hand Plan: OT ordered for hand strengthening Return to clinic in 6 months or sooner if needed (2) Leg weakness: Comment: Chronic history of cyclic episodes of myalgias involving her thighs with prior exam revealing lower extremity proximal muscle weakness resolved on current exam. Unclear etiology. 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 She has not had repeat episode of cyclic lower extremity weakness and myalgias since using CPAP. Laboratory workup was unremarkable with normal electrolytes, hemoglobin A1c, TSH, vitamin B12, muscle enzymes and inflammatory markers. At this time since she is asymptomatic, I will not pursue EMGs for further evaluation. Patient agrees with plan. Code(s): R29.898 - Other symptoms and signs involving the musculoskeletal system Category: Medical Qualifiers: Laterality: bilateral Qualified Code(s): R29.898 - Other symptoms and signs involving the musculoskeletal system Plan: Monitor clinically Return to clinic in 6 months or sooner if needed (3) Myalgia: Code(s): M79.10 - Myalgia, unspecified site Category: Medical Plan: See above Orders: Orders OT Evaluation and Treatment Today M19.041 - Primary osteoarthritis, right hand, M19.042 - Primary osteoarthritis, left hand Coding Level of Care Code Est Pt Level 4 (32721) Complex EM visit Add On G2211 Diagnoses Primary osteoarthritis of both hands M19.041; M19.042 Osteoarthritis type: primary Weakness of both lower extremities R29.898 Laterality: bilateral Myalgia M79.10
[2025-03-09 13:06] VITALS: BP 100/70; PULSE 76; O2SAT 96; BMI 29.1
--- OUTSIDE RECORDS SUMMARY | 2025-03-09 13:35 | XMS_ITS | Data Portability ---
Author Organization [facility] [employer] s [facility], [facility] Address [address] [address] Care Team Providers Care Chute Tender Name Role Phone HERB NAVARRO OTHER SHADE SHELLEY OTHER Assessment Encounter Date Assessment Date Assessment LastModified by Organization Details LastModified Time 08/16/2024 08/16/2024 Assessment and plan: Blood work done at [facility] Mind: Cognition: Normal aging changes Labs: will work to get labs from [facility] Head imaging: none in our chart [...] Assessment and plan: Blood work done at [facility] Mind: Cognition: Normal aging changes Labs: will work to get labs from [facility] Head imaging: none in our chart [...] in 3 months Not available 09/15/2024 14:25:05 01/10/2025 01/10/2025 Assessment and plan: Blood work done at [facility] Mind: Cognition: Normal aging changes Labs: will work to get labs from [facility] Head imaging: none in our chart Assessment: Had testing with Dr Aviles 4.2.24 - found to be entirely normal and excellent cognition, , though Terri noted that she tested as average . Plan: will monitor There are some things that we know can help with overall cognition. Important to be an active listener - repeat back, write things down. Our ability to multi- task gets worse as we get older Try to just do one thing at a time Physical activity is the best thing - 30 minutes 4-5 times a week but start off slow and build up Mental activity - learning a new skill Social activity Meditation and/or Nick Chi can help I personally spent 70 minutes preparing for, caring for the patient (F2F and non-F2F), and finalizing the visit for this patient, which included discussion with patient and/or family about diagnosis, prognosis, recommendation s, risk/benefits, risk reduction and education of above. Will f/u in 3 months PLAN - Callus on the left foot: Dremel off the callus to provide relief. - Wanting to lose weight: Consider scheduling with Elizabeth for further evaluation if needed. - Additional Plan Details: Schedule a mammogram in March 2025. Follow up in three months for a routine check-up. Not available 01/10/2025 14:32:02 01/24/2025 01/24/2025 Terri shared a typical day of meals. Cheerios and a banana at 5:30, salad or sandwhich for lunch, frozen meals like lasagna or pizza, or simple prepared meal. Usually makes food for only 1 meal. For snacks she is many sweets--ice cream, brownies, cookies. She eats eats nuts and seeds every day. She reports that she craves sugar and cannot stop herself for indulging. An analysis of diet reveals that she does not eat any complex carbohydrates, protein and healthy fats. The bulk of the calories in her diet comes from baked goods. She doesn't really like to cook, has never prepared food in advance. We focus on thinking about starting some small changes, especially in the morning so that she remains full longer, adding a healthy snack before lunch. Consider adding a whole grain (rice or quinoa), sweet potato or whole grain bread to lunch, also include protein. Plan ahead for dinner and consider making batch of food that would last the week, or buy healthy prepared food like rotisserie chicken, pre cut veggies, frozen fish. Not available 01/27/2025 12:56:40 Plan of Treatment Reminders Order Date Submit Date Provider Last Modified By Organization Details Last Modified Time Details Appointments FOLLOW UP 60 2024 01:30P M Julia Whitaker MD Not available Not available Not available Lab None recorded. Referral sleep medicine referral - getting evaluated for sleep apnea with in-clinic but needs a sleep specialis t 2023 024 ELISSA Christie MD, [address] [place], [address], 09/30/2024 16:03:44 rheumatol ogist referral - 69y.o with celiac, now muscle aches, has seen Dr Arellano , - also with chorea of unknown etiology 2023 024 Harpreet Govea MD, [address] [place], [address], 10/04/2024 13:50:35 Procedures None recorded. Surgeries None recorded. Imaging None recorded. Medication Orders None recorded. Patient Targets Encounter Date Encounter Id Patient Goals Patient Target Last Modified By Organization Details Last Modified Time 08/16/2024 [id number] Top three areas most motivated to change to improve overall currently level of health: 1. exercise 2. nutrition 3. weight mgmt Not available 08/16/2024 22:04:38 09/15/2024 [id number] Top three areas most motivated to change to improve overall currently level of health: 1. exercise 2. nutrition 3. weight mgmt Not available 09/15/2024 14:30:16 01/24/2025 [id number] Terri will work to plan ahead so that she has ready food for breakfast and lunches. We will provide some meal and recipe suggestions to give her ideas for how to get started. [email or web address] Not available 01/27/2025 12:57:30 Patient Instructions Encounter Date Encounter Id Patient Instructions Last Modified By Organization Details Last Modified Time 08/16/2024 [id number] sleep apnea: car e instructions Not available 08/16/2024 15:23:51 gluten-free diet : care instructions Not available 08/16/2024 15:23:51 01/24/2025 [id number] gluten-free diet : care instructions Not available 01/28/2025 11:48:47 Plan is to check back in a few weeks. Not available 01/27/2025 12:57:49 Reason for Referral Roping Machine Tender Referral for Celiac disease 69y.o with celiac, now muscle aches, has seen Dr Arellano, - also with chorea of unknown etiology 69y.o with celiac, now muscle aches, has seen Dr Arellano, - also with chorea of unknown etiology Referring Physician: Julia Whitaker, Geriatric Medicine, Encounter Date: 08/16/2024 Sleep Medicine [...] record ed. [email or web address] Not Available 2024 13:03:32 01/05/2001/03/2025 XR, hip + pelvi s, bilat eral No observ ation record ed. [email or web address] [facility] [address] [place] [address], [id number], 02/21/2025 11:25:51 01/05/20 25 01/03/2025 XR, hand No observ ation record ed. [email or web address] [facility] [address] [place] [address], [id number], 02/21/2025 11:26:23 Result Notes None recorded. Problems Name Problem SNOMED Code Status Onset Date Resolution Date Notes Provider Name and Address Organization Details Recorded Time Celiac disease 119455166 Active 2023 Julia Whitaker MD [address], [place], [address], [employer] [place] [facility] [employer] 4 14:15:50 Hyperchole sterolemia 43679037 Active 2023 Julia Whitaker MD [address], [place], [address], [place] [employer] [employer] 4 14:21:20 Bipolar disorder 80457602 Active 2023 mild and well managed Julia Whitaker MD [address], [place], [address], [employer] [place] [facility] [employer] 4 14:21:32 Sleep apnea 84747627 Active 2023 Julia Whitaker MD [address], [place], [address], [employer] [place] [facility] [employer] 4 14:21:44 Pain of joint 62685415 Active 2023 Julia Whitaker MD [address], [place], [address], [employer] [place] [facility] [employer] 4 14:21:58 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 Julia Whitaker MD [address], [place], [address], [employer] [place] [employer] [facility] [employer] 4 14:47:03 Irregular heart beat 306985569 Active 2023 Julia Whitaker MD [address], [place], [address], [employer] [place] [facility] [employer] 4 21:31:22 Goal achievemen t finding 698254558 Active 2023 Julia Whitaker MD [address], [place], [address], [employer] 4 22:05:55 Seen by primary care physician [id number] 9 Active 2023 Julia Whitaker MD [address] [place] [address], [address], [employer] 4 22:06:14 Active or passive immunizati on Active 2023 Julia Whitaker MD [address], [address], [employer] 4 22:06:17 Problem Notes None recorded. Procedures Surgical History Date Name Laterality Status Provider Name and Address Organization Details Recorded Time 5 Routine Foot Care completed Julia Whitaker MD [address] [place] [address], [phone], [employer] 01/10/2025 14:29:14 biopsy of breast completed Julia Whitaker MD [address] [place] [address], [phone], [employer] 08/16/2024 21:55:15 Imaging Results None recorded. Procedure Notes None recorded. Medical Equipment None Reported. Allergies Allergen ID Allergen Name Allergen Category Reaction Reaction Severity Criticality Documentation Date Start Date Code Code System Note Provider Name and Address Organization Details Recorded Time 652 Dolobid medicatio n Not available Not available Not available 08/16/202417693 6 RxNorm possi ble aller gic react ion Julia Whitaker MD [address], [address], [employer] 4 21:57:37 Medications Name Sig Start Date [...] 2)-100 mg tablets in a dose pack 01/06 completed Not Available Not Available Not Available Vitals Date Recorded Body height Body mass index (BMI) Body weight Heart rate Oxygen saturation Oxygen saturation in Arterial blood by Pulse oximetry Provider Name and Address Organization Details Last Updated DateTime 5 181.61 cm 28.1 kg/m2 99050.8 4 g 105 /min 95 % 95 % [facility] [employer] [facility] 5 12:59:17 Date Recorded Body height Oxygen saturation Oxygen saturation in Arterial blood by Pulse oximetry Body mass index (BMI) Body weight Heart rate Systolic blood pressure Diastolic blood pressure Provider Name and Address Organization Details Last Updated DateTime 5 181.61 cm 98 % 98 % 28.6 kg/m2 40375.2 1 g 71 /min 138 mm[Hg] 72 mm[Hg] Elizabeth [employer] [facility] [employer] [facility] 5 13:32:21 Date Recorded Body height Body mass index (BMI) Body weight Heart rate Oxygen saturation Oxygen saturation in Arterial blood by Pulse oximetry Systolic blood pressure Diastolic blood pressure Provider Name and Address Organization Details Last Updated DateTime 4 181.61 cm 27.9 kg/m2 67260.2 5 g 97 /min 78 % 78 % 118 mm[Hg] 68 mm[Hg] [employer] [facility] 4 14:14:29 Social History None recorded. Functional Status None [...] 2003 heart disease Medical History Condition Response Coronary Artery Disease N Other N Gout N Blood Diseases N Kidney Stones N Hyperthyroidism N Blood Transfusion N Emphysema N COPD N Depression N Incontinence N Edema N Anxiety Disorder Y Muscle, Joint, or Bone Problems Y Obesity Y Vision or Eye Problems N Arthritis Y Infertility N Polyps N Mental Disorder N Acid Reflux (GERD) Y Cancer N Stroke N Varicosities N Fibromyalgia Y Headaches N Kidney Disease N Abnormal Bleeding N Heart Problems N Ear or Hearing Problems N Hospitalizations N Eating Disorder N Skin Problems Y MRSA exposure N Constipation N Urinary Problems N Abdominal Pain N Tuberculosis N AIDS/HIV N Back Problems N Asthma N Hepatitis N Pulmonary Embolism N Chronic Ear Infections N Chicken Pox N Autism Spectrum Disorder (ASD) N Thrombophilias N Thyroid Disease N Breast Cancer N Lung Disease N Hypothyroidism N Defects or Inherited Disease N Developmental or Behavioral Disorders N Breast Problem N Difficulty Swallowing N Anesthesia Complications N Deep Vein Thrombosis N Meniere's disease N Hearing Loss N Abnormal Pap Smear N Endometriosis N Bladder or Kidney Problems N High Cholesterol N Liver Disease N Nervous System Disorder N Allergies/Hayfever Y Parkinson's Disease N Thyroid Problems N GI Problems Y ADD/ADHD N Anemia N Heart Attack (MD) N Mental Illness N Diabetes N Ovarian Cancer N Bedwetting N Seizures/Epilepsy N Congestive Heart Failure (CHF) N Eczema N Abuse/Domestic Violence N Diverticulitis N Dementia N Reflux/GERD Y Heart Disease N Pre-Eclampsia N Hypertension N Osteoporosis N Gynecological HistoryNo gynecological history recorded. Obstetrics History GPAL:G 0 P 0 0 0 0 Past Encounters Encounter ID Performer Location Encounter Start Date Encounter Closed Date Diagnosis/Indication Diagnosis SNOMED-CT Code Diagnosis ICD10 Code Diagnosis Note [id number] MD [facility] [address] [place] [address] 08/16/2024 13:59:05 08/16/2024 22:13:13 Seen by primary care physician [id number] 109 Z76.89 CPE: Cardiovasc [facility]:BMI : 27.9Lipids : will get reocrdsDia betes: will get recordsBP control: well controlled Hearing: not needed at this timeD[facility]Vi cheryl: Yes, Aga Cancer Screening: Breast: Mammogram 03.09.24, CDHCervica l: a few years ago, by Dr Feliz : a few years before covid, gets them done every 10 years, the pratice sends a notificati onLung: not needed Diet & Exercise: will discuss Osteoporos is Screening: will check on Dexa Advanced Care Planning: Has HCP Active or passive immunization [id number] Z23 MIIS ID: [id number] : Pneumo PCV - she is aware SummaryImm unizations Tdap 01/03/2023 Flu 06/05/2023 05/22/2024 COVID-19 09/30/2020 10/21/2020 06/11/2021 12/21/2021 05/28/2022 06/05/2023 05/22/2024 HiZoster 03/14/2023 , 07/11/2023 RSV - not until age 75 Advance care planning 71 [id number] Z71.89 Health Care Proxy: Juan Manuel Varghese, had it completed this summer.MOL ST: Not needed at this time.Other : POA and will completed done with Lawyer Chito in [place]. Has Goal achie vement finding [id number] Z72.89 Lifestyle Assessment Short Form:1. Overall level [...] to exercise because everything hurts! Bipolar disorder 0324780 4 F31.9 Mild overall,Vera s never been [...] even when she wasn't hungry.Now sees Mau Shelley Psychwho diagnosed Bipolar. Has seen therapist in the past but doesnt feel a need. Wellesley that after menopause things are a little better. Doesnt miss the risperidon e.Plan:Cur rently on citalopram 20 mg and divalproex ER 250 mg - does have some loose stoolsCan discuss what she has tried for loose stools next visit.F/u with Psych every 6 months but she can call him if she needs anything. Celiac disease 722492462 K90.0 She had a blood test with Dr De, and stopped gluten.Rec ently had some gluten and devd significan t joint pain but better when she stays off gluten.She has seen Sincere Salguero - who noted she has some auto-immun eNotes that her muscles hurt in her legs - has been going on for the past few years. More frequently in the past 6 months, can wake her up at night. She tries to stretch and that can help.Would benefit from seeing a rheumatsilvana gist.Will put in a referral to Sincere Lim at [facility]. 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 He walked with a wide base of support. He did see a neurologis t and they found all kinds of stuff but they didnt find a name for it. Movements looked like Wapello 's disease. Her father's side of the [...] MRI Brain was essential ly normal Had CREAMERY WORKER evaluation with [facility] - no problems awarePlan: [...] and ensure strengthen ing exercises. Hypercholesterolemia 136 05833 E78.00 Very borderline . One doctor thought she needed rosuvastat in. She was on it for a while - and didnt feel good on it.will get current blood work. She had [facility] Heart Panel. Pain of joint 08940944 M 25.50 as above, seems to be due to celiac disease but will put in referral to rheumatolo gy. Sleep apnea 19193944 G47 .30 She had a study done at [facility]. her in hospital study September 19 at [facility].S he will need a referral to sleep clinic - will put in a referral to Dr Henderson [id number] MD [facility] [address] [facility] [address] [facility] [place] [address] 09/15/2024 12:51:20 09/15/2024 14:33:12 Seen by primary care physician [id number] 109 Z76.89 CPE: Specialist s:Dr Herb Navarro: [facility] [place] [facility]at[facility] yTrying to get into Dr Govea Cardiovasseth [facility]:BMI : 27.9Lipids : will get recordsDia evans: will get recordsBP control: well controlled Hearing: not needed at this timeDental : [facility] PsychiatricVi cheryl: Yes, Dr Yung Cancer Screening: Breast: Mammogram 03.09.24, [facility] - repeat 7.Cervic al: a few years ago, by Dr Feliz : a few years before covid, gets them done every 10 years, the practice sends a notificati onLung: not needed Diet & Exercise: will discussOst eoporosis Screening: within the past 1.5 years, was averageAdv anced Care Planning:H as HCP Active or passive immunization [id number] Z23 MIIS ID: [id number] : Pneumo PCV - she is aware SummaryImm unizations Tdap 01/03/2023 Flu 06/05/2023 05/22/2024 COVID-19 09/30/2020 10/21/2020 06/11/2021 12/21/2021 05/28/2022 06/05/2023 05/22/2024 HiZoster 03/14/2023 , 07/11/2023 RSV - not until age 75 Advance care planning 71 [id number] Z71.89 Health Care Proxy: Juan Manuel Varghese, had it completed this summer.MOL ST: Not needed at this time.Other : POA and will completed done with Lawyer Chito in [place]. Goal achie vement finding [id number] Z72.89 Lifestyle Assessment Short Form:1. Overall level [...] to exercise because everything hurts! Bipolar disorder 1330795 4 F31.9 Mild overall,Vera s never been [...] the past but doesnt feel a need. Wellesley that after menopause things are a little better. Doesnt miss the risperidon e.Plan:Cur rently on citalopram 20 mg and divalproex ER 250 mg - does have some loose stoolsF/u with Psych every 6 months but she can call him if she needs anything. Celiac disease 293634828 K90.0 She had a blood test with Dr De, and stopped gluten.Rec emily had some gluten and devd significan t [...] can help.Would benefit from seeing a rheumatsilvana gist.We put in a referral to Dr Harpreet Govea, Rheumatsilvana gist at [facility]. She agreed to see Terri but then was told no by the receptioni . Chorea 531043894 G25.5 Her father had similiar movements. He [...] MRI Brain was essential ly normal Had CREAMERY WORKER evaluation with [facility] on 02.04.24 - no [...] in one year. MRI Bzrain done at [facility] 06.20.24 - noted mild prominence of [...] and ensure strengthen ing exercises. Hypercholesterolemia 136 57894 E78.00 Very borderline . One doctor thought she needed rosuvastat in. She was on it for a while - and didnt feel good on it.will get current blood work. She had [facility] Heart Panel. Pain of joint 58026089 M 25.50 as above, seems to be due to celiac disease but will put in referral to rheumatolo gy. Sleep apnea 05774878 G47 .30 She had a study done at [facility]. Her in hospital study September 15 at [facility].S he will need a referral to sleep clinic - we put in a referral to Dr Henderson but she has not heard from them. Loose stool 888429044 R1 9.5 Chronic and intermitte nt.She thinks caused by depakote. Has tried immodium with good effect.She is able to manage it but it can be unpredicta ble.Can try metamucil wafers. Cervical kyphosis 182381 001 M40.202 reviewed would work to try to reverse this to prevent problems in the future.Rec book [employer] ed exercises that can be done. [id number] MD [facility] [address] [facility] [place] [address] 01/10/2025 13:18:11 01/10/2025 14:22:06 Seen by primary care physician [id number] 109 Z76.89 CPE: Specialist s:Dr Herb Navarro: [facility] [place] [facility]ermat[facility] yTrying to get into Dr Govea, [facility] Rhe[facility]olo gy Cardiovasc ular health:BMI : 27.9Lipids : will get recordsDia betes: 5.3%BP control: well controlled Hearing: not needed at this timeDental : [facility] PracticeVi cheryl: Yes, Dr Yung Cancer Screening: Breast: Mammogram .11.01, [facility] - repeat 04.01Cervic al: a few years ago, by Dr Gutierrez, no further. HPV negativeCo ayde: a few years before covid, gets them done every 10 years, the practice sends a notificati onLung: not needed Diet & Exercise: will discussOst eoporosis Screening: within the past 1.5 years, was averageAdv anced Care Planning:H as HCP Active or passive immunization 823464324 Z23 MIIS ID: [id number] : Pneumo PCV - she had it done. SummaryImm unizations Tdap 01/03/2023 Flu 06/05/2023 05/22/2024 COVID-19 09/30/2020 10/21/2020 06/11/2021 12/21/2021 05/28/2022 06/05/2023 05/22/2024 HiZoster 03/14/2023 , 07/11/2023 RSV - not until age 75 Advance care planning 71 [id number] Z71.89 Health Care Proxy: JOSE Lea ST: Not needed at this time.Other : POA and will completed done with Lawyer Chito in [place]. Goal achie vement finding [id number] Z72.89 Lifestyle Assessment Short Form:1. Overall level [...] to exercise because everything hurts! Bipolar disorder 8618002 4 F31.9 Mild overall, stable overall. Some days she gets down but not long lasting or severe.Has never been hospitaliz ed. Had one manic [...] when she wasn't hungry.Now sees Mau Shelley, Psych who diagnosed Bipolar. Has seen therapist in the past but doesnt feel a need. Wellesley that after menopause things are a little better. Doesnt miss the risperidon e.Plan:Cur rently on citalopram 20 mg and divalproex ER 250 mg - does have some loose stoolsF/u with Psych every 6 months but she can call him if she needs anything. Celiac disease 702895723 K90.0 She had a blood test with Dr De, and stopped gluten.Rec ently had some gluten and devd significan t joint pain but better when she stays off gluten.She has seen Sincere Salguero - who noted she has some auto-immun e issues.Not es that her muscles hurt in her legs - has been going on for the past few years. More frequently in the past 6 months, can wake her up at night. She tries to stretch and that can help.We put in a referral to [facility] and they are in midst of w/u.- Celiac disease, with gluten-ind uced knee pain: Continue to avoid gluten to prevent exacerbati on of knee pain. 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 He walked with a wide base of support. He did see a neurologis t and they found all kinds of stuff but they didnt find a name for it. Movements looked like Wapello 's disease. Her father's side of the [...] in childhood. He gave her all these options.Sh e had blood work done - which came back normal. MRI Brain was essential ly normal Had CREAMERY WORKER evaluation with [facility] on 02.04.24 - no [...] with planned f/u in one year. MRI Brain done at [facility] 06.20.24 - noted mild prominence of [...] and ensure strengthen ing exercises. Hypercholesterolemia 136 19062 E78.00 Very borderline . One doctor thought she needed rosuvastat in. She was on it for a while - and didnt feel good on it.will get current blood work. She had [facility] Heart Panel. Pain of joint 59637626 M 25.50 as above, seems to be due to celiac diseaseShe was seen by Dr Govea who ordered lab working, imaging and EMG (which Terri does not want to get)Follow up with Dr. Govea as needed.Con tinue to avoid gluten to prevent exacerbati on of knee pain. Sleep apnea 32262935 G47 .30 She had a study done at [facility]. Her in hospital study September 15 at [facility]. - Seen by Dr Caceres, [facility] Sleep Medicine who recommende d CPAP and 2echo4.30. 25 - seen for fu by Dr Birch using CPAP with good effect. - Sleep apnea, improved with CPAP: Continue using the CPAP machine as it has improved comfort and compliance . Monitor for any changes in symptoms. Loose stool 893718153 R1 9.5 Chronic and intermitte nt.She thinks caused by depakote. Has tried immodium with good effect.She is able to manage it but it can be unpredicta ble.Can try metamucil and/or probiotics - Loose stools, managed with Imodium: Consider trying probiotics and Metamucil for better bowel management . Avoid Depakote when necessary and use Imodium as needed. Cervical kyphosis 001866 001 M40.202 reviewed would work to try to reverse this to prevent problems in the future.Rec book Built To [facility] ed exercises that can be done. [id number] MD [facility] [address] [facility] [address] [place] [address] 01/24/2025 10:04:24 01/24/2025 10:39:49 Celiac disease [id number] K90.0 Goals Section Goal Description Progress Status Start Date LastModified by Organization Details LastModified Time Patient demonstrates understandin g of beneficial diet and exercise plan None Recorded None active 2023 Elizabeth Onushco Information not available 08/30/2024 16:50:12 Medication Regimen Follows medication regimen as per care team recommendati on(s) None active 2023 Elizabeth Onushco Information not available 08/30/2024 16:50:29 Stress Management Reports effective management of stress None active 2023 Elizabeth Onushco Information not available 08/30/2024 16:51:52 Adequate Sleep Achieves adequate, well-rested sleep with minimal disruption None active 2023 Elizabeth Onushco Information not available 08/30/2024 16:51:52 Follow-up Appointment( s) Attends referral and/or follow-up appointment( s) as per care team recommendati on(s) None active 2023 Elizabeth Onushco Information not available 08/30/2024 16:51:52 Medication Regimen Follows medication regimen as per care team recommendati on(s) None active 2023 Elizabeth Onushco Information not available 08/30/2024 16:51:52 Exercise Regularly Follows a regular exercise regimen or instructed exercise plan as per care team recommendati on(s) None active 2023 Elizabeth Onushco Information not available 08/30/2024 16:51:52 Health Concerns Section Related Observation LastModified by Organization Detai ls LastModified Time None Recorded Concern Status LastModified by Organization Details LastModified Time Bipolar disorder Active Elizabeth Onushco Not Available 16:46:23 Chorea Active Elizabeth Onushco Not Available 16:46:12 Celiac disease Active Elizabeth Onushco Not Available 08/30 16:46:39 Advance Directives Directive None Recorded Payers Insurance Date Sequence Insurance Name Policy Number Policy Dinh Covered Member ID Dinh Member ID Guarantor Name 01/07/2025 1 [place] [employer] Terri Jimenez [id number] Terri Jimenez 02/11/2025 2 [place] [id number] Terri Jimenez [id number] Terri Jimenez Notes Date Note Type Note Provider Name and Address Organization Details Recorded Time 08/16/2024 text/html [facility] New Patient Information Person to contact for appointments and communication of results and appointments Self! 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 in [place] HPI: Chorea. Saw Dr Hamlin prior. Also saw Diana Young. Had a sleep [...] my terrible sweet tooth. Problems or concerns you d like the doctor to know about before your visit?: Care Planning: What matters most to you at this point in your life?: health! Longevity! Trying to stay active! fighting fatigue! enjoying my dogs and their competitive sports. Have you had any recent major life events (e.g., moves, in the family, hospital visits)?: Social History: Where were you born/raised? [place] 2 sisters and 1 brother.Childhood: parents very loving. Father drank from the time she was [age] gave them hell and then got better. He had a stressful job - state inspector.Both parents - mother 3 years ago of dementia, kidney, heart disease; father in 2003 heart diseaseWhat is your highest level of formal education?: [employer]; Master's DegreePartner status: single - got past her 40's, she feels tht she is asexual.Sexual orientation: straightDo you have children?: 0Which of the following best describes your residence?: [facility] - since 1990.Do you live alone? 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 no Do you use a pill organizer?: NoUses auto refill at [facility] How often do you forget to take [...] others your age? okay Julia [facility] MD [address] [facility] [address], [place], [address], [employer] 08/16/2024 22:10:37 09/15/2024 text/html Since last visit , 08.16. Has the sleep study at [facility].Oct 11 has genetic counseling at [facility], virtual Joints are back to normal - wakes up with left knee and hip pain in the morning but otherwise doing okay. Did get covid at the end of August, took Paxlovid - it worked well and things were very mild for her. Falls/change in gait: NoneED visits/hospitalization s: NoneChanges in function: NoneChanges in medication: None Julia [facility] MD [address] [facility] [address], [place], [address], [employer] 09/15/2024 14:32:47 01/10/2025 text/html Since last visit , 09.15.25: Terri Jimenez is a 69-year-old female who presents for a follow-up visit. She received the pneumonia vaccination as recommended. She has been engaging in physical therapy exercises, including stretching, balance, and strength training, based on recommendations from previous providers. Despite these efforts, she has not experienced weight loss and continues to struggle with a sweet tooth. She has been using a sleep apnea machine for two months and reports improved comfort and compliance with the device. She no longer experiences the foggy brain sensation and feels more present during the day. However, she still has cyclical days of extreme fatigue, particularly after traveling. She notes that scrolling on her phone in the morning makes her sleepy, leading to naps. Terri has a history of celiac disease, which she mentioned to Dr. Govea. She experienced worsening knee pain after consuming gluten. She underwent hip radiographs and blood work ordered by Dr. Govea. She is hesitant to undergo an EMG due to concerns about pain and questions its necessity. She has a family history of benign hereditary chorea but genetic testing did not identify the responsible gene. She expressed frustration about the lack of a definitive diagnosis but is not overly concerned as she has no children to pass it on to. Terri is actively involved in supporting individuals with dementia and has been asked to co-lead an [employer] support group. She finds this role fulfilling and aligns with her desire to help others. She reports overall stable mood but experiences occasional sadness due to the loss of friends. She continues to see Mau Nix and is on citalopram 20 mg and Depakote, which she finds effective. She manages loose stools by avoiding Depakote when necessary and using Imodium. She is considering trying probiotics and Metamucil for better bowel management. She has a callus on the plantar aspect of her left foot, which she noticed recently. 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 He recommended repeating MRI Brain, lab work as well as genetic counseling and f/u in 1 year. She declined any treatment as felt it was not affecting her overall function.Had genetic appt at [facility] in Oct - they did testing which didnt show the familial trait. She is much healthier than her father - he smoked 3 ppd, drank heavily and didnt exercise. We both agree she is a whole different person. 25 - Seen by Dr Caceres, [facility] who recommended CPAP and 2echo4.30.25 - seen for fu by Dr Smith also seen by Dr Govea, [facility] Julia [facility] MD [address] [facility], [place], [address], [employer] [facility] 01/10/2025 14:34:21 01/24/2025 text/html Terri comes to nu e visit today to discuss nutrition, weight loss, celiac disease. Julia Whitaker MD [address] [facility] [address], [place], [address], [employer] [facility] 01/28/2025 11:48:49 OBGyn Episode No OBEpisode recorded.
--- OUTSIDE RECORDS SUMMARY | 2025-03-09 13:35 | XMS_ITS | Clinical Summary ---
Author Organization [facility] Address [address] [place] [address] Care Team Providers Care [employer] Name Role Phone Mello Hamlin MD Primary Care Provider [phone] Allergies Active Allergy Reactions Criticality Noted Date Comments Diflunisal Swelling High 11/13/2018 Oral swelling Medications citalopram (CeleXA) 20 mg tablet Take 20 mg by mouth once a day. Active divalproex DR (Depakote) 250 mg EC tablet Take 250 mg by mouth every night. 04/02/2022 Active Family History Medical History Relation Name Comments [...] Office Visit [facility] [address] [place] [id number] Saúl Navarro MD [address] [place] [id number] Health Maintenance Due Date Last Done Comments [...] 2024 05/22/2024, 06/05/2023, 05/28/2022, Additional history exists Influenza Vaccine (#1) 2025 , 06/05/2023, 06/22/2022, Additional history exists Mammogram 03/05/2026 03/05/2024, 02/07, 10/17/2022, Additional history exists RSV Vaccine (60+ years old and patients) (1 - 1-dose 75+ series) 2030 DTaP,Tdap,and Td Vaccines (2 - Td or Tdap) 01/03/2033 01/03/2023 Hepatitis C Screening Completed 09/05/2017 Osteoporosis Screening Completed 07/09/2023 Zoster Vaccines Completed 07/11/2023, 03/14/2023 Hepatitis B Vaccines Aged Out No long er eligible based on patient's age to complete this topic Insurance [facility] M[facility] SUPP MEDICARE Care Teams [employer] Relationship Specialty Start Date End Date Mello Hamlin MD PCP - General 12/11/23
== END 2025-03-09 13:54 | disposition home or self-care (01) ==
LOC: HO.RHES 13:01
PROVIDERS: PCP Internal Medicine Geriatric Medicine; Visit Provider Internal Medicine Rheumatology
DX: M19.041 Primary osteoarthritis, right hand (principal); M19.042 Primary osteoarthritis, left hand; R29.898 Other symptoms and signs involving the musculoskeletal system; M79.10 Myalgia, unspecified site
CPT/HCPCS: 99214; G2211

== ENCOUNTER → 2025-03-09 13:01 | Outpatient (BNVA) | payer MEDICARE, SELFPAY | PROVIDERS: PCP Internal Medicine Geriatric Medicine; Visit Provider Internal Medicine Rheumatology | DX: M19.042 Primary osteoarthritis, left hand (principal); M19.041 Primary osteoarthritis, right hand; R29.898 Other symptoms and signs involving the musculoskeletal system; M79.10 Myalgia, unspecified site | CPT/HCPCS: 99212 ==